=== PATIENT | female | born 1950 | race Caucasian/White ===

== ENCOUNTER 2016-12-28 19:40 | Inpatient (IN) ==
[2016-12-28 21:31] LABS: Basophils # 0.1 K/mcL (0.0-0.2); Basophils % 0.3 %; Eosinophils # 0.1 K/mcL (0.0-0.6); Eosinophils % 0.3 %; Hematocrit 42.9 % (35.3-44.9); Hemoglobin 13.9 g/dL (11.5-15.4); Immature Granulocytes % 0.5 % (0-4); Immature Platelets 14.4 % (1.1-6.1); Lymphocytes # 1.2 K/mcL (0.6-4.6); Lymphocytes % 8.4 %; Mean Corpuscular HGB Conc 32.4 g/dL (31.6-35.5); Mean Corpuscular Hemoglobin 29.8 pg (28.0-33.3); Mean Corpuscular Volume 91.9 fL (83.0-100.0); Mean Platelet Volume 12.4 fL (9.4-12.4); Monocytes # 1.4 K/mcL (0.0-1.3); Monocytes % 9.3 %; Neutrophils # 11.9 K/mcL (1.6-8.9); Platelet Count 188 K/mcL (140-400); Red Blood Count 4.67 M/mcL (3.82-4.97); Red Cell Distribution Width 12.9 % (11.5-14.5); Segmented Neutrophils % 81.2 %
--- NOTE | 2016-12-28 21:38 | Emergency Department Note ---
Disposition Clinical Impression: Elevated LFTs Abdominal pain Qualifiers: Abdominal location: epigastric Qualified Code(s): R10.13 - Epigastric pain Pancreatitis, acute Qualifiers: Pancreatitis type: unspecified pancreatitis type Acute pancreatitis complication: unspecified Qualified Code(s): K85.90 - Acute pancreatitis without necrosis or infection, unspecified Bimalleolar fracture of left ankle Qualifiers: Encounter type: initial encounter Fracture type: closed Qualified Code(s): S82.842A - Displaced bimalleolar fracture of left lower leg, initial encounter for closed fracture Disposition: Admitted As Inpatient Condition: Fair Time of Disposition: 01:00 Abdominal Pain HPI - General Chief Complaint: ED Syncope Stated Complaint: Upper Abd Pain/ generalized weakness Time Seen by Provider: 12/28/16 21:26 Source: patient, EMS Mode of arrival: ambulatory Limitations: no limitations Nursing Notes Reviewed: Yes Vital Signs Reviewed: Yes - History of Present Illness HPI Narrative: Patient is a 66-year-old female who presents to [facility] ED with a chief complaint of abdominal pain. States her symptoms started 2 days ago in the epigastric region which radiates to the right upper quadrant. States she did not think much of it the last 2 days but then today she did feel some nausea with vomiting. States she was laying in bed and then felt like she was coming to Effexor she herself down onto the floor and then crawled over to the bathroom. States she did then crawl over to the phone to call her sisters. They had just been over visiting with her 3 hours prior to that. Denies any fevers or chills. No problems with chest pain, difficulty breathing. Pt Subjective Complaint: abdominal pain Onset (ago): day(s) Consistency: constant Location: epigastric Pain Severity: moderate Pain Scale: 5 Quality: aching Radiation: RUQ Migration to: no migration Improves with: nothing, vomiting Worsens with: eating Associated symptoms: Reports: nausea, vomiting. Denies: diarrhea, fever, chills , constipation Treatments prior to arrival: none - Related Data Allergies Allergy/AdvReac Type Severity Reaction Status Date / Time No Known Allergies Allergy Verified 12/28/16 19:52 All systems ED: reviewed and negative except as stated. Abdominal Pain PMH - Past Medical History Medical history: Reports: no medical history Female Surgical History: Reports: Psychiatric history: Reports: depression - Social History Smoking status: Never smoker Alcohol use: Reports: none Drug use: Reports: none Physical Exam - General Limitations: no limitations General appearance: alert, in no apparent distress - Head Head exam: atraumatic, normocephalic, normal inspection - Eye Eye exam: Present: normal appearance, PERRL, EOMI - ENT ENT exam: normal exam, normal oropharynx, mucous membranes moist - Neck Neck exam: Present: normal inspection, full ROM, trachea midline - Chest Chest inspection: Present: normal inspection, symmetric chest wall rise - Respiratory Respiratory exam: Present: normal lung sounds bilaterally - Cardiovascular Cardiovascular exam: Present: regular rate, normal rhythm, normal heart sounds - Abdominal Exam Abdominal exam: Present: soft, tenderness, normal bowel sounds. Absent: distention, guarding, rebound, rigidity Abdominal tenderness: Present: RUQ, epigastrium - Extremities Exam Extremities exam: Present: normal inspection, full ROM. Absent: tenderness, pedal edema - Back Exam Back exam: Present: normal inspection, full ROM. Absent: tenderness - Neurological Exam Neurological exam: Present: alert, oriented X3 - Psychiatric Psychiatric exam: Present: normal affect, normal mood - Skin Skin exam: Present: warm, dry, intact, normal color Course Course Narrative: Patient seen and examined. Epigastric abdominal pain with nausea and vomiting. Abdominal labs ordered in triage. Also EKG and troponin. Her labs show elevated liver function tests as well as lipase and amylase. We will order a CT abdomen and pelvis with IV contrast. IV fluids, pain and nausea medication orders. Patient also had multiple x-rays of the extremities ordered in triage. - Reevaluation(s) Reevaluation #1: X-ray show medial and lateral malleoli fractures in the left ankle. Patient cannot recall a specific event that happened today though she did say she kicked the wall on accident. I spoke with orthopedics Dr. Dhaliwal who will see the patient in consult and would like a left leg short posterior splint. CT abdomen and pelvis shows a distended gallbladder with stones though no obvious sign of acute cholecystitis. With her pancreatitis, suspect gallbladder pancreatitis. I spoke with surgery Dr. Hernandez who will consult on the patient. I also spoke with the hospitalist Dr. Judge who has accepted patient for admission. Time: 00:56 Vital Signs Temperature 97.8 F 12/28/16 19:46 Pulse Rate 78 12/28/16 19:46 Respiratory Rate 20 03/29/17 19:46 Blood Pressure 103/64 12/28/16 19:46 O2 Sat by Pulse Oximetry 98 12/28/16 19:46 Temperature 97.8 F 12/28/16 19:46 Pulse Rate 83 12/28/16 23:31 Respiratory Rate 18 12/29/16 00:33 Blood Pressure 117/70 12/29/16 00:33 O2 Sat by Pulse Oximetry 96 12/28/16 23:31 Oxygen Delivery Oxygen Delivery Room Air Abdominal Pain - Medical Records Medical records reviewed: Yes I reviewed the patient's medical records. - Lab Data Lab results reviewed: Yes I reviewed the patient's lab results. Result diagrams: 12/28/16 21:08 12/28/16 21:08 Lab Results 12/28/16 12/28/16 12/28/16 Range/Units 20:00 21:08 21:08 WBC 14.7 H (4.3-11.1) K/mcL RBC 4.67 (3.82-4.97) M/mcL Hgb 13.9 (11.5-15.4) g/dL Hct 42.9 (35.3-44.9) % MCV 91.9 (83.0-100.0) fL MCH 29.8 (28.0-33.3) pg MCHC 32.4 (31.6-35.5) g/dL RDW 12.9 (11.5-14.5) % Plt Count 188 (140-400) K/mcL MPV 12.4 (9.4-12.4) fL Immature Gran % 0.5 (0-4) % Seg Neutrophils % 81.2 % Lymphocytes % 8.4 % Monocytes % 9.3 % Eosinophils % 0.3 % Basophils % 0.3 % Neutrophils # 11.9 H (1.6-8.9) K/mcL Lymphocytes # 1.2 (0.6-4.6) K/mcL Monocytes # 1.4 H (0.0-1.3) K/mcL Eosinophils # 0.1 (0.0-0.6) K/mcL Basophils # 0.1 (0.0-0.2) K/mcL Immature Plt Fraction 14.4 H (1.1-6.1) % PT 11.7 (9.4-12.1) Seconds INR 1.1 APTT 24.7 L (26.0-36.0) Seconds Sodium (136-145) mEq/L Potassium (3.5-4.5) mEq/L Chloride (98-109) mEq/L Carbon Dioxide (19-29) mEq/L BUN (7-20) mg/dL Creatinine (0.57-1.11) mg/dL Est GFR ( Amer) (> 60) Est GFR (Non-Af Amer) (> 60) BUN/Creatinine Ratio (6-26) Glucose (70-99) mg/dL POC Glucose 136 H (58-89) Calculated Osmolality (280-300) Calcium (8.6-10.8) mg/dL Total Bilirubin (0.2-1.2) mg/dL Direct Bilirubin (0.0-0.5) mg/dL Indirect Bilirubin (0.0-1.2) mg/dL AST (5-34) Units/L ALT (0-55) Units/L Alkaline Phosphatase (38-126) Units/L Troponin I (0-0.03) ng/mL Serum Total Protein (6.0-8.3) g/dL Albumin (3.5-5.0) g/dL Globulin (2.4-3.5) g/dL Albumin/Globulin Ratio (1.1-2.2) Amylase (25-125) Units/L Lipase (8-78) Units/L Urine Color (Yellow) Urine Clarity (Clear) Urine pH (5.0-8.0) pH Units Ur Specific Basom (1.010-1.025) Urine Protein (Neg-Trace) mg/dL Urine Glucose (UA) (Normal) mg/dL Urine Ketones (Negative) mg/dL Urine Blood (Negative) Urine Nitrite (Negative) Urine Bilirubin (Negative) Urine Urobilinogen (Normal) mg/dL Ur Leukocyte Esterase (Negative) Urine Microscopic RBC (0-3) per hpf Urine Microscopic WBC (0-3) per hpf Ur Squamous Epith Cells (None-Few) per lpf Urine Bacteria (None-Few) per hpf Hyaline Casts (None-Few) per lpf Ur Culture Indicated? (NO) 12/28/16 12/28/16 12/28/16 Range/Units 21:08 21:08 23:12 WBC (4.3-11.1) K/mcL RBC (3.82-4.97) M/mcL Hgb (11.5-15.4) g/dL Hct (35.3-44.9) % MCV (83.0-100.0) fL MCH (28.0-33.3) pg MCHC (31.6-35.5) g/dL RDW (11.5-14.5) % Plt Count (140-400) K/mcL MPV (9.4-12.4) fL Immature Gran % (0-4) % Seg Neutrophils % % Lymphocytes % % Monocytes % % Eosinophils % % Basophils % % Neutrophils # (1.6-8.9) K/mcL Lymphocytes # (0.6-4.6) K/mcL Monocytes # (0.0-1.3) K/mcL Eosinophils # (0.0-0.6) K/mcL Basophils # (0.0-0.2) K/mcL Immature Plt Fraction (1.1-6.1) % PT (9.4-12.1) Seconds INR APTT (26.0-36.0) Seconds Sodium 141 (136-145) mEq/L Potassium 3.3 L (3.5-4.5) mEq/L Chloride 106 (98-109) mEq/L Carbon Dioxide 21 (19-29) mEq/L BUN 20 (7-20) mg/dL Creatinine 0.95 (0.57-1.11) mg/dL Est GFR ( Amer) > 60 (> 60) Est GFR (Non-Af Amer) 59 L (> 60) BUN/Creatinine Ratio 21 (6-26) Glucose 167 H (70-99) mg/dL POC Glucose (58-89) Calculated Osmolality 298 (280-300) Calcium 9.3 (8.6-10.8) mg/dL Total Bilirubin 5.9 H (0.2-1.2) mg/dL Direct Bilirubin 4.3 H (0.0-0.5) mg/dL Indirect Bilirubin 1.6 H (0.0-1.2) mg/dL AST 743 H (5-34) Units/L ALT 733 H (0-55) Units/L Alkaline Phosphatase 117 (38-126) Units/L Troponin I 0.00 (0-0.03) ng/mL Serum Total Protein 7.2 (6.0-8.3) g/dL Albumin 4.1 (3.5-5.0) g/dL Globulin 3.1 (2.4-3.5) g/dL Albumin/Globulin Ratio 1.3 (1.1-2.2) Amylase 5492 H (25-125) Units/L Lipase > 03854 H (8-78) Units/L Urine Color Dark Yellow (Yellow) Urine Clarity Cloudy A (Clear) Urine pH 6.0 (5.0-8.0) pH Units Ur Specific Basom > 1.030 H (1.010-1.025) Urine Protein 30 H (Neg-Trace) mg/dL Urine Glucose (UA) Normal (Normal) mg/dL Urine Ketones Negative (Negative) mg/dL Urine Blood Negative (Negative) Urine Nitrite Negative (Negative) Urine Bilirubin Moderate H (Negative) Urine Urobilinogen Normal (Normal) mg/dL Ur Leukocyte Esterase Trace H (Negative) Urine Microscopic RBC 0-3 (0-3) per hpf Urine Microscopic WBC 3-5 H (0-3) per hpf Ur Squamous Epith Cells Many H (None-Few) per lpf Urine Bacteria None Seen (None-Few) per hpf Hyaline Casts None Seen (None-Few) per lpf Ur Culture Indicated? YES A (NO) - Radiology Data Radiology results reviewed: Yes I reviewed the patient's radiology results. Chest X-Ray 12/28/16 19:58 IMPRESSION: 1. No acute cardiopulmonary disease. D/ / Perez Garcia MD / Perez Garcia MD Interpreting Provider: Perez Garcia MD Ankle X-Ray 12/28/16 20:04 IMPRESSION: 1. Lateral soft swelling at the left ankle with an acute nondisplaced avulsion fracture of the lateral malleolus. 2. Cortical step-off involving the anterior process of the calcaneus, consistent with an age-indeterminate fracture. D/ / Teofilo Recio MD / Teofilo Recio MD Interpreting Provider: Teofilo Recio MD Foot X-Ray 12/28/16 20:05 IMPRESSION: 1. Acute cortical fractures of the medial and lateral malleoli. 2. No acute osseous abnormality of the left foot. D/ / Abhishek Dawson MD / Abhishek Dawson MD Interpreting Provider: Abhishek Dawson MD Knee X-Ray 12/28/16 20:05 IMPRESSION: No acute osseous abnormality of the left knee. D/ / Abhishek Dawson MD / Abhishek Dawson MD Interpreting Provider: Abhishek Dawson MD Abdomen/Pelvis CT 12/28/16 21:53 IMPRESSION: 1. Multiple gallstones. Distended gallbladder without convincing CT evidence for cholecystitis. D/ / 12/28/2016 23:22:11 Perez Garcia MD / Chelo Don Interpreting Provider: Perez Garcia MD Head CT 12/28/16 21:53 IMPRESSION: No acute intracranial abnormality. D/ / Perez Garcia MD / Perez Garcia MD Interpreting Provider: Perez Garcia MD - EKG Data EKG attestation: Yes I reviewed and interpreted this EKG. EKG results narrative: EKG done at 1951 shows normal sinus rhythm with a rate of [address] elevation or depression. Normal axis. Unchanged from prior EKG done 08/15/2012 Attestation Statement - Attestation Attestation: I, Tucker Lilly MD, personally performed a history and physical exam of the patient and discussed their management with the resident. I reviewed the resident's note and agree with the documented findings, medical decision making , and plan of care. 66-year-old female presents to the emergency department with a complaint of epigastric and upper abdominal pain for the past couple of days. There has been some nausea but no vomiting until she arrived here in the emergency department and she did have an episode of vomiting here. The pain does not radiate to the back. No fever. No diarrhea. No GI bleed symptoms. No urinary symptoms. Patient reports that tonight she had an episode of near- syncope and slid off the bed onto the floor and was in the floor rolling around from the pain and thinks she hit her left ankle against the wall. On examination patient is a well-developed well-nourished elderly female in no acute distress. She is alert and oriented 3. There is no cyanosis or diaphoresis. Breath sounds are clear and equal bilaterally. Heart regular rate and rhythm. Abdomen is soft with normal bowel sounds. There is moderate epigastric tenderness. No tympany or distention. No guarding or rebound tenderness. There is tenderness and swelling over the lateral malleolus of the left ankle with some mild ecchymosis. Labs reviewed and revealed elevated liver enzymes and lipase. X-ray did show a fracture of the lateral malleolus and also the calcaneus. Dr. Gray discussed the case with orthopedics and surgery. The patient is being admitted to the hospitalist. Admission and accepted by Dr. Judge.
[2016-12-28 21:40] LABS: INR 1.1; Prothrombin Time 11.7 Seconds (9.4-12.1)
[2016-12-28 21:43] LABS: Activated Partial Thrombo Time 24.7 Seconds (26.0-36.0)
[2016-12-28 21:48] LABS: Alanine Aminotransferase 733 Units/L (0-55); Albumin 4.1 g/dL (3.5-5.0); Albumin/Globulin Ratio 1.3 (1.1-2.2); Alkaline Phosphatase 117 Units/L (38-126); Amylase 5492 Units/L (25-125); Aspartate Amino Transferase 743 Units/L (5-34); BUN/Creatinine Ratio 21 (6-26); Bilirubin,Direct 4.3 mg/dL (0.0-0.5); Bilirubin,Indirect 1.6 mg/dL (0.0-1.2); Bilirubin,Total 5.9 mg/dL (0.2-1.2); Blood Urea Nitrogen 20 mg/dL (7-20); Calcium 9.3 mg/dL (8.6-10.8); Carbon Dioxide 21 mEq/L (19-29); Chloride 106 mEq/L (98-109); Globulin 3.1 g/dL (2.4-3.5); Glucose 167 mg/dL (70-99); Osmolality,Calculated 298 (280-300); Potassium 3.3 mEq/L (3.5-4.5); Sodium 141 mEq/L (136-145); Total Protein 7.2 g/dL (6.0-8.3); eGFR For African Americans > 60 (> 60); eGFR For Non-African Americans 59 (> 60)
[2016-12-28] MEDS ORDERED: Ondansetron 4 MG/2 ML VIAL IVP ONE (22:01)
[2016-12-28] MEDS ORDERED: *HR* HYDROmorphone (PF) 1 MG/ML SYRINGE IVP ONE (22:01)
[2016-12-28] MEDS ORDERED: 0.9 % Sodium Chloride 1,000 ML IVC ONE (22:01)
[2016-12-28 22:48] LABS: Lipase > 12000 Units/L (8-78)
[2016-12-28 23:21] LABS: Bilirubin,Urine Moderate (Negative); Blood,Urine Negative (Negative); Clarity,Urine Cloudy (Clear); Color,Urine Dark Yellow (Yellow); Glucose,Urine (UA) Normal (Normal); Ketones,Urine Negative (Negative); Leukocyte Esterase,Urine Trace (Negative); Nitrite,Urine Negative (Negative); Protein,Urine 30 mg/dL (Neg-Trace); Specific Gravity,Urine > 1.030 (1.010-1.025); Urobilinogen,Urine Normal (Normal)
[2016-12-28 23:22] LABS: Bacteria,Urine None Seen per hpf (None-Few); Hyaline Casts,Urine None Seen per lpf (None-Few); RBC,Urine 0-3 per hpf (0-3); Squamous Epithelial Cell,Urine Many per lpf (None-Few)
--- NOTE | 2016-12-29 00:04 | Internal Med History&Physical ---
Date of Encounter: 12/29/16 Time of Encounter: 01:00 Assessment and Plan (1) Acute abdominal pain syndrome Current visit: Yes Status: Acute . (2) Fall at home Current visit: Yes Status: Acute . Qualifiers: Encounter type: initial encounter Qualified Code(s): W19.XXXA - Unspecified fall, initial encounter; Y92.099 - Unspecified place in other non- institutional residence as the place of occurrence of the external cause (3) Postural dizziness with presyncope Current visit: Yes Status: Acute . Internal Medicine - H&P: HPI Chief complaint: Abdominal pain. Weakness. Admitted From: Emergency Dept Plans for Post Hospital Care: Home History of present illness: Ms. Vora is a 66 year old female admitted to [facility] with complaints of generalized weakness and upper abdominal pain. Patient presents via EMS with assist from home after a syncopal event. He presents with a chief complaint of abdominal pain. This began approximately 2 or more days prior to this presentation primarily in the epigastric region with radiation to the right upper quadrant. It was not limiting however. The day prior to admission she began to experience increasing nausea and some vomiting. Pain seemed to escalate. The night before presentation she was laying in bed and began to feel lightheaded and diaphoretic and nauseated. She felt as if she was about to pass out. She attempted to rise and then found herself on the floor crawling to the bathroom. His disorientation along with her abdominal pain escalated and she began to live from pain on the floor and believes she may have inferior to the left ankle struck it against a wall injuring it. It was an apposition that she called family to assist her motivating the arrival of EMS services. In the ED she denied any acute chest pain. Denied any awareness of any fevers chills or sweats prior to tonight's events. Denied any difficulty breathing. Denies any diarrhea constipation dysuria. Denied any episodes of bleeding. She describes the pain is predominantly epigastric into the right upper quadrant through to the back at a 5-6/10 severity. Nothing seemed to improve symptoms were not present. Slight relief. Following emesis. Worsened with eating. Vital signs were stable. Patient was afebrile at 97.8 degrees Fahrenheit. CBC showed a white blood cell count of 14.7 with increase in neutrophils monocytes and immature platelet fractions. PT 11.7 INR 1.1. Metabolic panel normal except for potassium of 3.3 glucose 167. Total bilirubin 5.9 with direct of 4.3 and direct 1.6. AST 743 ALT 733. Troponin 0.00. Amylase 5492. Lipase greater than 12,000. Urinalysis showed large protein and moderate bilirubin trace leukocyte esterase. PRBC. 5 WBC. Many epithelial cells. Chest x-ray showed no acute active cardiopulmonary process. Ankle x-ray demonstrated lateral soft swelling of the left ankle with acute nondisplaced avulsion fracture of the lateral malleolus. Cortical step-off involving the anterior process of the calcaneus, consistent with age indeterminate fracture. Foot x-ray demonstrated acute fractures of the medial and lateral malleoli. No other acute osseous abnormality of the left foot pain. Knee x-ray demonstrated no acute osseous abnormality of the left knee. CT abdomen and pelvis demonstrated multiple gallstones. Distended gallbladder without CT evidence for cholecystitis. CT head scan showed no acute intracranial abnormality. EKG demonstrated normal sinus rhythm without acute ischemic changes. Appendix surgery and general surgery were consulted by the emergency room attending staff and agreed to follow and manage the patient in the inpatient setting. Workup and treatment will proceed comprehensively. The patient was visited and interviewed and examined. Cumulative laboratory and radiographic data base will be considered and discussed. Pertinent ancillary medical records including ECW and PCI documentation when available was reviewed and considered. Given the patient's presenting concerns, past medical history, clinical findings and symptoms, she is admitted at this time will undergo further evaluation and disposition. Orders were written as per Computerized physician sales order processor system.......................................................................... .................... Consultative opinion will be sought as clinical circumstances justify. Pain management needs will be addressed. Laboratory/ radiographic data base will be updated as appropriate. Studies include: Cultures blood urine, pt/inr, aptt, UA, UDS, viral hepatitis profile, cardiac injury panel, BNP, metabolic and hematologic panel, magnesium, phosphorus, ionized calcium, thyroid panel, lipid profile, A1c, C-peptide, CRP, sedimentation rate, respiratory infection profile, respiratory virus panel, amylase, lipase, blood gas, lactic acid, serologies, etc. Precautions: Aspiration, fall, delirium protocol/surveillance initiated. Telemetry with continuous hemodynamic monitoring and pulse oximetry initiated. Empiric antibiotic coverage: Intravenous Unasyn pending culture data. Special studies: CT chest, CT head, CT abd/pel, left knee/ankle/foot x-rays, chest x-ray, telemetry, EKG. Pulmonary toilet: Incentive spirometry. PRN: aerosol bronchodilator, mucolytic, antitussive, supplemental oxygen. Corticosteroid therapy PRN. CPAP/BiPAP supplemental oxygen PRN. Aerosol Mucomyst therapy PRN. Fluid and electrolyte repletion efforts will proceed. Careful attention to fluid balance and renal recovery will be emphasized. Avoidance of nephrotoxic exposure and adverse drug drug interaction in the setting of impaired renal function will be monitored closely. Acute coronary syndrome protocol/surveillance initiated. Bowel rest imposed. NPO/ice chips et al. Antiemetic, prokinetic, probiotic therapy. Strict input and output and daily weights. Progressive rehydration therapy. DVT and PUD prophylaxis initiated: PPI therapy, intermittent pneumatic cuffs. Subcutaneous heparin/lovenox. Early ambulation will be encouraged. Immunization updates recommended. Influenza and pneumococcal vaccinations as part of ongoing preventative healthcare recommendations strongly recommended. Smoke cessation counseling briefly addressed. Patient is a nonsmoker. Advanced care directive discussion briefly addressed. Patient does not declare any healthcare restrictions at this time. Cardiovascular risk appraisal and cardiovascular risk reduction efforts will be emphasized. Physical /occupational therapy may be counseled to evaluate patient's functional capacity and progress mobility if her circumstances justify. Nutrition/dietary education counseling may be considered as circumstances justify. Outpatient medication schedules will be reviewed, confirmed and facilitated as appropriate. Reconciliation of home treatments including adjustments, substitutions and reintroduction into the treatment regimen will address necessary maintenance therapies for chronic pre-existing medical conditions. Plan of care has been reviewed and discussed in detail with the patient. Questions addressed. Hospital course dictated by clinical findings, treatment response and potential consultative interventions. Patient is a risk for further acute clinical decline due to her age, chief complaints and comorbid conditions. Condition is serious. Prognosis is guarded. CODE STATUS is full. Past Med Surg Social Fam HX - Past Medical History Source: old records reviewed Medical history: non-contributory, other Psychiatric history: anxiety, depression, other - Past Surgical History Surgical History: , other - Social History Smoking Status: Never smoker Alcohol use: none Drug use: none Occupational status: retired Current living situation: Home, With Family Activity Level: Independent ambulation, Mostly sedentary Recent Out of Country Travel Within the Last 8 Weeks: No Exposure or Possible Exposure to Illness During Travel: No - Family History Mother History Unknown: Yes Adopted: [place]: Mackenzie Wagner Age: 88 Family Member Ethnicity: Non- Living Status: Still Living Father History Unknown: Yes Adopted: [place]: Cali Wagner Age: 74 Living Status: Age at : 74 Cause of : pneumonia Hx Family Cardiac Disorders: No Hx Family Respiratory Disorders: No Hx Family Cancer: Yes Hx Family GI Disorders: No Hx Family Genitourinary Disorders: No Hx Family Endocrine Disorder: No Hx Family Musculoskeletal Disorders: No Hx Family Neuromuscular Disorders: No Hx Family Neurologic Disorders: No Hx Family HEENT Disorders: No Hx Family Autoimmune Disorders: No Hx Family Reproductive Disorders: No Hx Family Psychosocial Disorders: No Hx Family Medical Disorders: No Internal Medicine - H&P: Meds Allergies No Known Allergies Allergy (Verified 12/28/16 19:52) All Systems PM: A 10-system review of systems was performed and is negative for pertinent findings except as documented above in the HPI. Patient Problems (Last Updated 12/29/16 @ 00:04 by Junior Judge MD) Acute abdominal pain syndrome (Acute Medical) R10.0 Fall at home (Acute Medical) W19.XXXA, Y92.099 - Constitutional Constitutional: as per HPI, fatigue, falls, malaise, weakness, other, no chills , no fever(s), no night sweats - EENT Eyes: as per HPI, no change in vision, no discharge, no pain, no photophobia Ears: as per HPI, no ear discharge, no ear pain, no tinnitus Nose, mouth and throat: as per HPI, no dysphagia, no nasal discharge, no neck pain, no sore throat - Cardiovascular Cardiovascular ROS IM: as per HPI, lightheadedness, syncope, other, no chest pain, no diaphoresis, no dyspnea, no palpitations - Respiratory Respiratory: as per HPI, no cough, no dyspnea, no wheezing, no excessive phlegm production - Gastrointestinal Gastrointestinal: as per HPI, abdominal pain, constipation, other, no diarrhea, no hematemesis, no hematochezia, no melena, no nausea, no vomiting - Genitourinary Genitourinary: as per HPI, no change in urinary stream, no dysuria, no flank pain, no hematuria - Musculoskeletal Musculoskeletal ROS IM: as per HPI, no numbness, no tingling - Integumentary Integumentary IM: as per HPI, no rash, no unusual bruising - Neurological Neurological ROS: as per HPI, weakness, other, no confusion, no convulsions, no focal weakness, no numbness, no tingling, no tremor(s) - Psychiatric Psychiatric: as per HPI - Endocrine Endocrine IM: as per HPI - Hematologic/Lymphatic Hematologic/Lymphatic: as per HPI, no easy bruising - Allergic/Immunologic Allergic/Immunologic: as per HPI - Constitutional Vitals: Temp Pulse Resp BP Pulse Ox 97.8 F 83 18 124/71 96 12/28/16 19:46 12/28/16 23:31 12/28/16 23:31 12/28/16 23:31 12/28/16 23:31 Vital Signs Temp Pulse Resp BP Pulse Ox 12/28/16 23:31 83 18 124/71 96 12/28/16 22:31 96 18 108/64 97 12/28/16 19:46 97.8 F 78 20 103/64 98 Intake and Output 12/28/16 12/28/16 12/29/16 15:59 23:59 07:59 Intake Total 1000 / 1000 Balance 1000 / 1000 Intake: IV Fluids 1000 / 1000 0.9 % Sodium Chloride 1, 1000 / 1000 000 ML @ 3750 mls/hr IVC .Q16M ONE Rx#:[id number] Other: Weight 74.843 kg Allergies Allergy/AdvReac Type Severity Reaction Status Date / Time No Known Allergies Allergy Verified 12/28/16 19:52 General appearance: Present: mild distress, A&O X 3, morbidly obese, answers questions appropriately - Head Head exam: Present: atraumatic, normocephalic - Eye Eye exam: Present: EOMI, PERRL, scleral icterus, conjuntiva pink Pupils: Present: normal accommodation, PERRL - ENT ENT exam: Present: mucous membranes moist, normal oropharynx - Neck Neck exam general surgery: Present: full ROM, supple, trachea midline. Absent: lymphadenopathy - Respiratory Respiratory exam: Present: decreased breath sounds. Absent: accessory muscle use, CTAB, rales, rhonchi, stridor, wheezes - Cardiovascular Cardiovascular exam: Present: distant heart sounds, RRR, +S1, +S2. Absent: diastolic murmur, gallop, rubs, systolic murmur - GI/Abdominal GI/Abdominal exam: Present: distended, normal bowel sounds, soft, tenderness, no peritoneal signs. Absent: mass - Extremities Exam Extremities exam: Present: warm, radial pulses palpable and symetrical. Absent : calf tenderness, cyanotic, pedal edema - Expanded Lower Extremities Exam Ankle exam: Present: deformity, swelling, tenderness. Absent: full ROM Neuro vascular tendon exam: Present: motor deficit, no vascular compromise, significant pain with passive ROM of distal joint. Absent: pulse deficit, sensory deficit Gait: Present: not tested/not observed - Neurological Exam Neurological exam: Present: alert, altered, CN II-XII intact, oriented X3, no focal deficits. Absent: pronater drift, facial droop, speech deficit - Psychiatric Psychiatric exam: Present: normal affect, normal mood - Skin Skin exam: Present: dry, intact, warm Internal Med - H&P Results - Labs CBC & Chem 7: 12/28/16 21:08 12/28/16 21:08 Labs: Short CBC 12/28/16 Range/Units 21:08 WBC 14.7 H (4.3-11.1) K/mcL Hgb 13.9 (11.5-15.4) g/dL Hct 42.9 (35.3-44.9) % Plt Count 188 (140-400) K/mcL Neutrophils # 11.9 H (1.6-8.9) K/mcL BMP 12/28/16 21:08 Sodium 141 Potassium 3.3 L Chloride 106 Carbon Dioxide 21 BUN 20 Creatinine 0.95 Glucose 167 H Calcium 9.3 Cardiac Enzymes 12/28/16 Range/Units 21:08 Troponin I 0.00 (0-0.03) ng/mL Liver Function 12/28/16 Range/Units 21:08 Total Bilirubin 5.9 H (0.2-1.2) mg/dL Direct Bilirubin 4.3 H (0.0-0.5) mg/dL AST 743 H (5-34) Units/L ALT 733 H (0-55) Units/L Alkaline Phosphatase 117 (38-126) Units/L Albumin 4.1 (3.5-5.0) g/dL Urine 12/28/16 Range/Units 23:12 Urine Color Dark Yellow (Yellow) Urine Clarity Cloudy A (Clear) Urine pH 6.0 (5.0-8.0) pH Units Ur Specific Stitzer > 1.030 H (1.010-1.025) Urine Protein 30 H (Neg-Trace) mg/dL Urine Glucose (UA) Normal (Normal) mg/dL Abnormal lab results WBC 14.7 K/mcL (4.3-11.1) H 12/28/16 21:08 Neutrophils # 11.9 K/mcL (1.6-8.9) H 12/28/16 21:08 Monocytes # 1.4 K/mcL (0.0-1.3) H 12/28/16 21:08 Immature Plt Fraction 14.4 % (1.1-6.1) H 12/28/16 21:08 APTT 24.7 Seconds (26.0-36.0) L 12/28/16 21:08 Potassium 3.3 mEq/L (3.5-4.5) L 12/28/16 21:08 Est GFR (Non-Af Amer) 59 (> 60) L 12/28/16 21:08 Glucose 167 mg/dL (70-99) H 12/28/16 21:08 POC Glucose 136 (58-89) H 12/28/16 20:00 Total Bilirubin 5.9 mg/dL (0.2-1.2) H 12/28/16 21:08 Direct Bilirubin 4.3 mg/dL (0.0-0.5) H 12/28/16 21:08 Indirect Bilirubin 1.6 mg/dL (0.0-1.2) H 12/28/16 21:08 AST 743 Units/L (5-34) H 12/28/16 21:08 ALT 733 Units/L (0-55) H 12/28/16 21:08 Amylase 5492 Units/L (25-125) H 12/28/16 21:08 Lipase > 56651 Units/L (8-78) H 12/28/16 21:08 Urine Clarity Cloudy (Clear) A 12/28/16 23:12 Ur Specific Stitzer > 1.030 (1.010-1.025) H 12/28/16 23:12 Urine Protein 30 mg/dL (Neg-Trace) H 12/28/16 23:12 Urine Bilirubin Moderate (Negative) H 12/28/16 23:12 Ur Leukocyte Esterase Trace (Negative) H 12/28/16 23:12 Urine Microscopic WBC 3-5 per hpf (0-3) H 12/28/16 23:12 Ur Squamous Epith Cells Many per lpf (None-Few) H 12/28/16 23:12 Ur Culture Indicated? YES (NO) A 12/28/16 23:12 Laboratory Last Values WBC 14.7 K/mcL (4.3-11.1) H 12/28/16 21:08 RBC 4.67 M/mcL (3.82-4.97) 12/28/16 21:08 Hgb 13.9 g/dL (11.5-15.4) 12/28/16 21:08 Hct 42.9 % (35.3-44.9) 12/28/16 21:08 MCV 91.9 fL (83.0-100.0) 12/28/16 21:08 MCH 29.8 pg (28.0-33.3) 12/28/16 21:08 MCHC 32.4 g/dL (31.6-35.5) 12/28/16 21:08 RDW 12.9 % (11.5-14.5) 12/28/16 21:08 Plt Count 188 K/mcL (140-400) 12/28/16 21:08 MPV 12.4 fL (9.4-12.4) 12/28/16 21:08 Immature Gran % 0.5 % (0-4) 12/28/16 21:08 Seg Neutrophils % 81.2 % 12/28/16 21:08 Lymphocytes % 8.4 % 12/28/16 21:08 Monocytes % 9.3 % 12/28/16 21:08 Eosinophils % 0.3 % 12/28/16 21:08 Basophils % 0.3 % 12/28/16 21:08 Neutrophils # 11.9 K/mcL (1.6-8.9) H 12/28/16 21:08 Lymphocytes # 1.2 K/mcL (0.6-4.6) 12/28/16 21:08 Monocytes # 1.4 K/mcL (0.0-1.3) H 12/28/16 21:08 Eosinophils # 0.1 K/mcL (0.0-0.6) 12/28/16 21:08 Basophils # 0.1 K/mcL (0.0-0.2) 12/28/16 21:08 Immature Plt Fraction 14.4 % (1.1-6.1) H 12/28/16 21:08 PT 11.7 Seconds (9.4-12.1) 12/28/16 21:08 INR 1.1 12/28/16 21:08 APTT 24.7 Seconds (26.0-36.0) L 12/28/16 21:08 Sodium 141 mEq/L (136-145) 12/28/16 21:08 Potassium 3.3 mEq/L (3.5-4.5) L 12/28/16 21:08 Chloride 106 mEq/L (98-109) 12/28/16 21:08 Carbon Dioxide 21 mEq/L (19-29) 12/28/16 21:08 BUN 20 mg/dL (7-20) 12/28/16 21:08 Creatinine 0.95 mg/dL (0.57-1.11) 12/28/16 21:08 Est GFR ( Amer) > 60 (> 60) 12/28/16 21:08 Est GFR (Non-Af Amer) 59 (> 60) L 12/28/16 21:08 BUN/Creatinine Ratio 21 (6-26) 12/28/16 21:08 Glucose 167 mg/dL (70-99) H 12/28/16 21:08 POC Glucose 136 (58-89) H 12/28/16 20:00 Calculated Osmolality 298 (280-300) 12/28/16 21:08 Calcium 9.3 mg/dL (8.6-10.8) 12/28/16 21:08 Total Bilirubin 5.9 mg/dL (0.2-1.2) H 12/28/16 21:08 Direct Bilirubin 4.3 mg/dL (0.0-0.5) H 12/28/16 21:08 Indirect Bilirubin 1.6 mg/dL (0.0-1.2) H 12/28/16 21:08 AST 743 Units/L (5-34) H 12/28/16 21:08 ALT 733 Units/L (0-55) H 12/28/16 21:08 Alkaline Phosphatase 117 Units/L (38-126) 12/28/16 21:08 Troponin I 0.00 ng/mL (0-0.03) 12/28/16 21:08 Serum Total Protein 7.2 g/dL (6.0-8.3) 12/28/16 21:08 Albumin 4.1 g/dL (3.5-5.0) 12/28/16 21:08 Globulin 3.1 g/dL (2.4-3.5) 12/28/16 21:08 Albumin/Globulin Ratio 1.3 (1.1-2.2) 12/28/16 21:08 Amylase 5492 Units/L (25-125) H 12/28/16 21:08 Lipase > 30260 Units/L (8-78) H 12/28/16 21:08 Urine Color Dark Yellow (Yellow) 12/28/16 23:12 Urine Clarity Cloudy (Clear) A 12/28/16 23:12 Urine pH 6.0 pH Units (5.0-8.0) 12/28/16 23:12 Ur Specific Stitzer > 1.030 (1.010-1.025) H 12/28/16 23:12 Urine Protein 30 mg/dL (Neg-Trace) H 12/28/16 23:12 Urine Glucose (UA) Normal mg/dL (Normal) 12/28/16 23:12 Urine Ketones Negative mg/dL (Negative) 12/28/16 23:12 Urine Blood Negative (Negative) 12/28/16 23:12 Urine Nitrite Negative (Negative) 12/28/16 23:12 Urine Bilirubin Moderate (Negative) H 12/28/16 23:12 Urine Urobilinogen Normal mg/dL (Normal) 12/28/16 23:12 Ur Leukocyte Esterase Trace (Negative) H 12/28/16 23:12 Urine Microscopic RBC 0-3 per hpf (0-3) 12/28/16 23:12 Urine Microscopic WBC 3-5 per hpf (0-3) H 12/28/16 23:12 Ur Squamous Epith Cells Many per lpf (None-Few) H 12/28/16 23:12 Urine Bacteria None Seen per hpf (None-Few) 12/28/16 23:12 Hyaline Casts None Seen per lpf (None-Few) 12/28/16 23:12 Ur Culture Indicated? YES (NO) A 12/28/16 23:12 - Impressions ITS Impressions Chest X-Ray 12/28/16 19:58 IMPRESSION: 1. No acute cardiopulmonary disease. D/ / Perez Garcia MD / Perez Garcia MD Interpreting Provider: Perez Garcia MD Ankle X-Ray 12/28/16 20:04 IMPRESSION: 1. Lateral soft swelling at the left ankle with an acute nondisplaced avulsion fracture of the lateral malleolus. 2. Cortical step-off involving the anterior process of the calcaneus, consistent with an age-indeterminate fracture. D/ / Teofilo Recio MD / Teofilo Recio MD Interpreting Provider: Teofilo Recio MD Foot X-Ray 12/28/16 20:05 IMPRESSION: 1. Acute cortical fractures of the medial and lateral malleoli. 2. No acute osseous abnormality of the left foot. D/ / Abhishek Dawson MD / Abhishek Dawson MD Interpreting Provider: Abhishek Dawson MD Knee X-Ray 12/28/16 20:05 IMPRESSION: No acute osseous abnormality of the left knee. D/ / Abhishek Dawson MD / Abhishek Dawson MD Interpreting Provider: Abhishek Dawson MD Abdomen/Pelvis CT 12/28/16 21:53 IMPRESSION: 1. Multiple gallstones. Distended gallbladder without convincing CT evidence for cholecystitis. D/ / 12/28/2016 23:22:11 Perez Garcia MD / Chelo Don Interpreting Provider: Perez Garcia MD Head CT 12/28/16 21:53 IMPRESSION: No acute intracranial abnormality. D/ / Perez Garcia MD / Perez Garcai MD Interpreting Provider: Perez Garcia MD - Attending Attestation Allergies No Known Allergies Allergy (Verified 12/28/16 19:52) I & O 12/26/16 12/27/16 12/28/16 12/29/16 23:59 23:59 23:59 23:59 Intake Total 1000 / 1000 Balance 1000 / 1000 Weight 74.843 kg Intake: IV Fluids 1000 / 1000 0.9 % Sodium Chloride 1, 1000 / 1000 000 ML @ 3750 mls/hr IVC .Q16M ONE Rx#:[id number] Medications Discontinued Medications Hydromorphone HCl (Dilaudid) 0.5 mg IVP ONCE ONE Stop: 12/28/16 22:02 Last Admin: 12/28/16 22:25 Dose: 0.5 mg Re-Assess: [facility] Pain Assessment Document 12/28/16 23:10 [facility] (Rec: 12/28/16 23:34 [facility] [id number]) Patient's Stated Pain Level Pain Intensity 4 Sodium Chloride (0.9 % Sodium Chloride) 1,000 mls @ 3,750 mls/hr IVC .Q16M ONE Stop: 12/28/16 22:16 Last Infusion: 12/28/16 23:34 Dose: 0 mls/hr Ondansetron HCl (Zofran) 4 mg IVP ONCE ONE PRN Reason: Protocol Stop: 12/28/16 22:02 Last Admin: 12/28/16 22:26 Dose: 4 mg Orders 12/28/16 19:57 12 lead ECG assessment [RC] NOW Glucose, blood poc measurement [RC] .ONCE ECG 12 lead ECG [ECG] Stat Mode Of Transportation: Ambulatory Reason For Exam: syncope Exam Performed At:: [facility] 12/28/16 19:58 XR chest 2V [XR] Stat Mode Of Transportation: Ambulatory Reason For Exam: sycope Order Doctor: Tucker Lilly Exam Performed At:: [facility] 12/28/16 20:00 POC Glucometer Test [POC] Routine 12/28/16 20:04 XR ankle complete min 3V LT [XR] Stat Mode Of Transportation: Ambulatory Reason For Exam: injury Order Doctor: Tucker Lilly Exam Performed At:: [facility] 12/28/16 20:05 XR foot 3V LT [XR] Stat Mode Of Transportation: Ambulatory Reason For Exam: injury Order Doctor: Tucker Lilly Exam Performed At:: [facility] XR knee 3V LT [XR] Stat Mode Of Transportation: Ambulatory Reason For Exam: injury Order Doctor: Tucker Lilly Exam Performed At:: [facility] Additional Notes/Special Instructions: may adjust number of films for foot/ ankle/knee as needed 12/28/16 21:08 Activated Partial Thrombo Time [COAG] Stat Comment: Specimen: Send someone from the department to collect Amylase Stat Comment: Specimen: Send someone from the department to collect Basic Metabolic Panel Stat Comment: Specimen: Send someone from the department to collect Complete Blood Count [HEME] Stat Comment: Specimen: Send someone from the department to collect Hepatic Panel Stat Comment: Specimen: Send someone from the department to collect Lipase Stat Comment: Specimen: Send someone from the department to collect Prothrombin Time INR [COAG] Stat Comment: Specimen: Send someone from the department to collect Troponin I Stat Comment: Specimen: Send someone from the department to collect 12/28/16 21:53 CT abd pelvis w iv no oral [CT] Stat Mode Of Transportation: Ambulatory Quantity: 1 Reason For Exam: abd pain Order Doctor: Lakshmi Gray Exam Performed At:: [facility] Allergic to Contrast: No CT head/brain wo con [CT] Stat Mode Of Transportation: Ambulatory Reason For Exam: abd pain Order Doctor: Lakshmi Gray Exam Performed At:: [facility] Allergic to Contrast: No 12/28/16 22:01 Saline lock [RC] .ONCE 0.9 % Sodium Chloride 1,000 ml IVC 3,750 mls/hr HYDROmorphone (PF) [Dilaudid] 0.5 mg IVP ONCE ONE Ondansetron [Zofran] 4 mg IVP ONCE ONE 12/28/16 23:12 Culture,Urine [RM] Stat DIANE Source: UR Specimen Description: Urinalysis Reflex Cult & Micro [URIN] Stat Comment: Specimen: Has been collected Source of specimen:: Clean Catch 12/28/16 23:[address] Stat Comment: Reason for Visit: acute pancreatitis, L ankle fx 12/28/16 23:40 Consult to Surgery [CONS] Routine Consulting Provider: Silas Hernandez Reason for Consult: concern for gallstone pancreatitis Time Notified: 23:41 Call Completed: Yes 12/28/16 23:50 Splint [RC] .NOW Consult to Orthopedic Surgery [CONS] Routine Consulting Provider: Carlos Dhaliwal Reason for Consult: L lateral and medial malleoli fxs Time Notified: 23:51 Call Completed: Yes Vital Signs Temp Pulse Resp BP Pulse Ox 12/28/16 23:31 83 18 124/71 96 12/28/16 22:31 96 18 108/64 97 12/28/16 19:46 97.8 F 78 20 103/64 98 Laboratory Results 12/28/16 12/28/16 12/28/16 Range/Units 20:00 21:08 21:08 WBC 14.7 H (4.3-11.1) K/mcL RBC 4.67 (3.82-4.97) M/mcL Hgb 13.9 (11.5-15.4) g/dL Hct 42.9 (35.3-44.9) % MCV 91.9 (83.0-100.0) fL MCH 29.8 (28.0-33.3) pg MCHC 32.4 (31.6-35.5) g/dL RDW 12.9 (11.5-14.5) % Plt Count 188 (140-400) K/mcL MPV 12.4 (9.4-12.4) fL Immature Gran % 0.5 (0-4) % Seg Neutrophils % 81.2 % Lymphocytes % 8.4 % Monocytes % 9.3 % Eosinophils % 0.3 % Basophils % 0.3 % Neutrophils # 11.9 H (1.6-8.9) K/mcL Lymphocytes # 1.2 (0.6-4.6) K/mcL Monocytes # 1.4 H (0.0-1.3) K/mcL Eosinophils # 0.1 (0.0-0.6) K/mcL Basophils # 0.1 (0.0-0.2) K/mcL Immature Plt Fraction 14.4 H (1.1-6.1) % PT 11.7 (9.4-12.1) Seconds INR 1.1 APTT 24.7 L (26.0-36.0) Seconds Sodium (136-145) mEq/L Potassium (3.5-4.5) mEq/L Chloride (98-109) mEq/L Carbon Dioxide (19-29) mEq/L BUN (7-20) mg/dL Creatinine (0.57-1.11) mg/dL Est GFR ( Amer) (> 60) Est GFR (Non-Af Amer) (> 60) BUN/Creatinine Ratio (6-26) Glucose (70-99) mg/dL POC Glucose 136 H (58-89) Calculated Osmolality (280-300) Calcium (8.6-10.8) mg/dL Total Bilirubin (0.2-1.2) mg/dL Direct Bilirubin (0.0-0.5) mg/dL Indirect Bilirubin (0.0-1.2) mg/dL AST (5-34) Units/L ALT (0-55) Units/L Alkaline Phosphatase (38-126) Units/L Troponin I (0-0.03) ng/mL Serum Total Protein (6.0-8.3) g/dL Albumin (3.5-5.0) g/dL Globulin (2.4-3.5) g/dL Albumin/Globulin Ratio (1.1-2.2) Amylase (25-125) Units/L Lipase (8-78) Units/L Urine Color (Yellow) Urine Clarity (Clear) Urine pH (5.0-8.0) pH Units Ur Specific [place] (1.010-1.025) Urine Protein (Neg-Trace) mg/dL Urine Glucose (UA) (Normal) mg/dL Urine Ketones (Negative) mg/dL Urine Blood (Negative) Urine Nitrite (Negative) Urine Bilirubin (Negative) Urine Urobilinogen (Normal) mg/dL Ur Leukocyte Esterase (Negative) Urine Microscopic RBC (0-3) per hpf Urine Microscopic WBC (0-3) per hpf Ur Squamous Epith Cells (None-Few) per lpf Urine Bacteria (None-Few) per hpf Hyaline Casts (None-Few) per lpf Ur Culture Indicated? (NO) 12/28/16 12/28/16 12/28/16 Range/Units 21:08 21:08 23:12 WBC (4.3-11.1) K/mcL RBC (3.82-4.97) M/mcL Hgb (11.5-15.4) g/dL Hct (35.3-44.9) % MCV (83.0-100.0) fL MCH (28.0-33.3) pg MCHC (31.6-35.5) g/dL RDW (11.5-14.5) % Plt Count (140-400) K/mcL MPV (9.4-12.4) fL Immature Gran % (0-4) % Seg Neutrophils % % Lymphocytes % % Monocytes % % Eosinophils % % Basophils % % Neutrophils # (1.6-8.9) K/mcL Lymphocytes # (0.6-4.6) K/mcL Monocytes # (0.0-1.3) K/mcL Eosinophils # (0.0-0.6) K/mcL Basophils # (0.0-0.2) K/mcL Immature Plt Fraction (1.1-6.1) % PT (9.4-12.1) Seconds INR APTT (26.0-36.0) Seconds Sodium 141 (136-145) mEq/L Potassium 3.3 L (3.5-4.5) mEq/L Chloride 106 (98-109) mEq/L Carbon Dioxide 21 (19-29) mEq/L BUN 20 (7-20) mg/dL Creatinine 0.95 (0.57-1.11) mg/dL Est GFR ( Amer) > 60 (> 60) Est GFR (Non-Af Amer) 59 L (> 60) BUN/Creatinine Ratio 21 (6-26) Glucose 167 H (70-99) mg/dL POC Glucose (58-89) Calculated Osmolality 298 (280-300) Calcium 9.3 (8.6-10.8) mg/dL Total Bilirubin 5.9 H (0.2-1.2) mg/dL Direct Bilirubin 4.3 H (0.0-0.5) mg/dL Indirect Bilirubin 1.6 H (0.0-1.2) mg/dL AST 743 H (5-34) Units/L ALT 733 H (0-55) Units/L Alkaline Phosphatase 117 (38-126) Units/L Troponin I 0.00 (0-0.03) ng/mL Serum Total Protein 7.2 (6.0-8.3) g/dL Albumin 4.1 (3.5-5.0) g/dL Globulin 3.1 (2.4-3.5) g/dL Albumin/Globulin Ratio 1.3 (1.1-2.2) Amylase 5492 H (25-125) Units/L Lipase > 26837 H (8-78) Units/L Urine Color Dark Yellow (Yellow) Urine Clarity Cloudy A (Clear) Urine pH 6.0 (5.0-8.0) pH Units Ur Specific [place] > 1.030 H (1.010-1.025) Urine Protein 30 H (Neg-Trace) mg/dL Urine Glucose (UA) Normal (Normal) mg/dL Urine Ketones Negative (Negative) mg/dL Urine Blood Negative (Negative) Urine Nitrite Negative (Negative) Urine Bilirubin Moderate H (Negative) Urine Urobilinogen Normal (Normal) mg/dL Ur Leukocyte Esterase Trace H (Negative) Urine Microscopic RBC 0-3 (0-3) per hpf Urine Microscopic WBC 3-5 H (0-3) per hpf Ur Squamous Epith Cells Many H (None-Few) per lpf Urine Bacteria None Seen (None-Few) per hpf Hyaline Casts None Seen (None-Few) per lpf Ur Culture Indicated? YES A (NO) Assessments/Treatments 12 lead ECG assessment Start: 12/28/16 19: 57 Freq: NOW Status: Complete Document 12/28/16 19:52 ALS (Rec: 12/28/16 20:18 ALS [id number]) EKG Time EKG Completed 19:52 EKG performed by Nenita MONTOYA shown to and signed by Dr Lilly Cardiac monitoring Start: 12/28/16 19: 41 Freq: Status: Complete Document 12/28/16 22:34 [facility] (Rec: 12/28/16 22:38 [facility] [id number]) Cardiac Monitoring Heart Rate 88 Monitoring Method Telemetry Rhythm Sinus Rhythm Monitor Number 3 ED Abdominal Pain Assessment Start: 12/28/16 19: 41 Freq: Status: Complete Document 12/28/16 22:34 [facility] (Rec: 12/28/16 22:38 [facility] [id number]) Abdominal Pain Symptoms/Complaint Abdominal Pain Context Unknown Improves With Bowel Movement Rest Vomiting Worsens With Eating Movement Associated Symptoms Constipations Vomiting Level Of Consciousness Awake Alert Appropriate Follows Commands Patient Orientation Person Place Time Name Age Date of Day of Month Day of Week Month Year Time of Day Skin Temperature Warm Skin Moisture Dry Skin Turgor Normal Capillary Refill < 3 Seconds Respiratory Effort Spontaneous Non-Labored Respiratory Pattern Regular Abdomen Description Flat Soft Tender Date of Last Bowel Movement 12/28/16 Nausea/Vomiting Presence Nauseated Vomiting Emesis Description Bile Bladder Distention Description None Last Void Date 12/28/16 ED Comment pt reports several days of epigastric pain that radiates to the right. pt has not had BM for several days. states this is unusual for her. pt said she passed a medium amount of stool. did not look at for color or appearance. Saline lock insertion/management Start: 12/28/16 22: 01 Freq: .ONCE Status: Complete Document 12/28/16 22:23 [facility] (Rec: 12/28/16 22:23 [facility] [id number]) IV Insertion/Site Assessment IV Attempt 1 Successful Successful Blood drawn and sent to Lab No Left Antecubital IV Established PROMOTIONS PRODUCER No Date of Insertion 12/28/16 Time of Insertion 22:23 Reason for IV Insertion Provide Access for Emergency IV Catheter Type Peripheral IV Gauge (gauge) 18 Site Observation Patent Dressing Applied Window Dressing Dry/Intact Patient Tolerance Tolerated Well Triage Start: 12/28/16 19: 41 Freq: Status: Active Document 12/28/16 19:46 ALS (Rec: 12/28/16 19:52 ALS [id number]) Triage Chief Complaint triage ED Syncope Patient Stated Complaint abd pain, syncope ARTHUR 2 Onset (ago) hour(s) Description of Symptoms States that about an hour ago she got up to go to the bathroom because it felt as if she was going to vomit and then the next thing she noticed was crawling around on the bathroom floor so she called her daughter and her sister called EMS. C/O upper abd pain and nausea. States that she also injured her L ankle and knee when she passed out. General Appearance alert in no apparent distress Mode of arrival EMS Arrival via EMS [facility] Source patient EMS Limitations no limitations Ebola Risk: Travel/Contact With Anyone No From Affected Area/s Has Patient Experienced Ebola Symptoms No Temperature (97.6 F-99.6 F) 97.8 F Temperature Source Oral Pulse Rate 78 Respiratory Rate 20 Blood Pressure 103/64 O2 Sat by Pulse Oximetry (95-100) 98 Oxygen Delivery Room Air Height 1.68 m Weight 74.843 kg Weight Measurement Method Stated by Patient Pain Scale 5 Pain Scale Used Standard (1-10) Medical history no medical history Female surgical history Psychiatric history depression Smoking Status Never smoker Alcohol Use none Drug Use none Patient resides with/at Alone Do you currently feel hopless, have No thoughts of self harm, or thoughts of harming others History of fall in last 14 days? Yes Influenza vaccine up to date No Pneumonia vaccine up to date No Tetanus UTD yes Vital Signs Assessment Start: 12/28/16 19: 41 Freq: Status: Active Document 12/28/16 22:31 [facility] (Rec: 12/28/16 22:33 [facility] [id number]) ED Vital Signs Pain Reported Pain Reported Pain Scale 7 Pain Scale Used Standard (1-10) Blood Pressure 108/64 Pulse Rate 96 Respiratory Rate 18 Effort Spontaneous Non-Labored Pattern Regular Pulse Oximetry (95-100) 97 Oxygen Delivery Room Air Document 12/28/16 23:31 [facility] (Rec: 12/28/16 23:34 [facility] [id number]) ED Vital Signs Pain Reported Pain Reported Pain Scale 4 Pain Scale Used Standard (1-10) Blood Pressure 124/71 Pulse Rate 83 Respiratory Rate 18 Effort Spontaneous Non-Labored Pattern Regular Pulse Oximetry (95-100) 96 Oxygen Delivery Room Air Discharge Information ED Provider: Tucker Lilly Status: Admitted Observation Patient Time Seen by Provider: 12/28/16 21:26 Condition: Triaged At: Other ED Providers: Silas Hernandez Brian Seth Emergency Discharge Date/Time: Emergency Discharge Disposition: Clinical Impression Emergency Discharge Comment: Admit Intervention Last Done ED Abdominal Pain Assessment 12/28/16 22:34 Query Result Abdominal Pain Symptoms/Comlaint Abdominal Pain Abdominal Pain Context Unknown Abdominal Pain Improves With Bowel Movement Rest Vomiting Abdominal Pain Worsens With Eating Movement Abdominal Pain Associated Symptoms Constipations Vomiting Level Of Consciousness Awake Alert Appropriate Follows Commands Patient Orientation Person Place Time Name Age Date of Day of Month Day of Week Month Year Time of Day Skin Temperature Warm Skin Moisture Dry Skin Turgor Normal Capillary Refill < 3 Seconds Respiratory Effort Spontaneous Non-Labored Respiratory Pattern Regular Abdomen Description Flat Soft Tender Date of Last Bowel Movement 12/28/16 Nausea/Vomiting Presence Nauseated Vomiting Emesis Description Bile Bladder Distention Description None Last Void Date 12/28/16 ED Comment pt reports several days of epigastric pain that radiates to the right. pt has not had BM for several days. states this is unusual for her. pt said she passed a medium amount of stool. did not look at for color or appearance. ED Discharge Assessment ED Syncope Assessment Observation Discharge Date/Time: Observation Discharge Disposition: Observation Discharge Comment: Instructions: Stand-Alone Forms: Prescriptions: Visit Report - Forms: - Referrals: Radiology Results Chest X-Ray 12/28/16 19:58 IMPRESSION: 1. No acute cardiopulmonary disease. D/ / Perez Garcia MD / Perez Garcia MD Interpreting Provider: Perez Garcia MD Ankle X-Ray 12/28/16 20:04 IMPRESSION: 1. Lateral soft swelling at the left ankle with an acute nondisplaced avulsion fracture of the lateral malleolus. 2. Cortical step-off involving the anterior process of the calcaneus, consistent with an age-indeterminate fracture. D/ / Teofilo Recio MD / Teofilo Recio MD Interpreting Provider: Teofilo Recio MD Foot X-Ray 12/28/16 20:05 IMPRESSION: 1. Acute cortical fractures of the medial and lateral malleoli. 2. No acute osseous abnormality of the left foot. D/ / Abhishek Dawson MD / Abhishek Dawson MD Interpreting Provider: Abhishek Dawson MD Knee X-Ray 12/28/16 20:05 IMPRESSION: No acute osseous abnormality of the left knee. D/ / Abhishek Dawson MD / Abhishek Dawson MD Interpreting Provider: Abhishek Dawson MD Abdomen/Pelvis CT 12/28/16 21:53 IMPRESSION: 1. Multiple gallstones. Distended gallbladder without convincing CT evidence for cholecystitis. D/ / 12/28/2016 23:22:11 Perez Garcia MD / Chelo Don Interpreting Provider: Perez Garcia MD Head CT 12/28/16 21:53 IMPRESSION: No acute intracranial abnormality. D/ / Perez Garcia MD / Perez Garcia MD Interpreting Provider: ePrez Garcia MD
[2016-12-29] MEDS ORDERED: 0.9 % Sodium Chloride 1,000 ML IVC ONE (00:19)
[2016-12-29] MEDS ORDERED: Naloxone 0.4 MG/ML INJ IVP PRN (00:28)
[2016-12-29] MEDS ORDERED: *HR* Promethazine 25 MG/ML VIAL IVP PRN (00:28)
[2016-12-29] MEDS ORDERED: Potassium Chloride 40 MEQ, Lidocaine 1% 2 ML in D5% in Water 500 ML IVPB ONE (00:28)
[2016-12-29] MEDS ORDERED: Ampicillin/Sulbactam 1,500 MG in 0.9 % Sodium Chloride Mini Bag 100 ML IVPB STA (00:38)
[2016-12-29] MEDS ORDERED: Pantoprazole 80 MG in 0.9 % Sodium Chloride 50 ML IVPB STA (00:39)
[2016-12-29 01:11] LABS: VBG HCO3 23.7 mEq/L (21-27); VBG PH 7.32 pH Units (7.32-7.42)
[2016-12-29 01:23] LABS: C-Reactive Protein 10 mg/L (Less than 5); Lactate Dehydrogenase 834 Units/L (159-327)
[2016-12-29 01:24] LABS: Amylase 3952 Units/L (25-125); Chol/HDL Ratio 3.1 (0-4.9); Cholesterol 195 mg/dL (< 200); HDL Cholesterol 63 mg/dL (40-59); LDL Cholesterol,Calculated 123 mg/dL (0-99); Phosphorous 3.9 mg/dL (2.3-4.7); Triglycerides 47 mg/dL (< 150)
[2016-12-29 01:32] LABS: Hemoglobin A1C 5.4 %
[2016-12-29 01:34] LABS: Ethanol < 10 mg/dL (0-10)
[2016-12-29 01:48] LABS: Hepatitis A Antibody IgM Nonreactive (Nonreactive); Hepatitis B Core IgM Nonreactive (Nonreactive); Hepatitis B Surface Antigen Nonreactive (Nonreactive); Hepatitis C Virus Antibody Nonreactive (Nonreactive)
[2016-12-29 01:55] LABS: Thyroid Stimulating Hormone 0.624 mcIU/mL (0.350-4.840)
[2016-12-29] MEDS: *HR* HYDROmorphone (PF) 1 MG/ML SYRINGE IVP PRN ×4 (02:19→14:28)
[2016-12-29 02:23] LABS: Lipase > 12000 Units/L (8-78)
[2016-12-29] MEDS: Ringers Solution, Lactated 1,000 ML IVC SCH ×2 (03:05→12:07)
[2016-12-29 03:30] LABS: Bilirubin,Urine Small (Negative); Blood,Urine Negative (Negative); Clarity,Urine Clear (Clear); Color,Urine Yellow (Yellow); Glucose,Urine (UA) Normal (Normal); Ketones,Urine Negative (Negative); Leukocyte Esterase,Urine Negative (Negative); Nitrite,Urine Negative (Negative); Protein,Urine Negative (Neg-Trace); Specific Gravity,Urine > 1.030 (1.010-1.025); Urobilinogen,Urine Normal (Normal)
[2016-12-29 03:36] LABS: Amphetamine Screen,Urine Negative ng/mL (Cutoff=1000); Barbiturate Screen,Urine Negative ng/mL (Cutoff=200); Benzodiazepines Screen,Urine Negative ng/mL (Cutoff=200); Cannabinoid Screen,Urine Negative ng/mL (Cutoff = 50); Cocaine Screen,Urine Negative ng/mL (Cutoff= 300); Opiate Screen,Urine Negative ng/mL (Cutoff=300); Phencyclidine Screen,Urine Negative ng/mL (Cutoff=25)
[2016-12-29] MEDS: Pantoprazole 40 MG VIAL IVP SCH ×2 (04:49→18:30)
[2016-12-29] MEDS: Ampicillin/Sulbactam 1,500 MG in 0.9 % Sodium Chloride Mini Bag 100 ML IVPB SCH ×3 (04:54→18:31)
[2016-12-29] MEDS ORDERED: Calcium Gluconate 2,000 MG in D5% in Water 100 ML IVPB ONE (06:15)
--- NOTE | 2016-12-29 07:56 | Orthopedic Consult Note ---
Date of Encounter: 12/29/16 Time of Encounter: 07:45 History of Present Illness Chief complaint: Fall - Abdominal pain HPI: Ms. Vora is a 66 year old female, admitted from ED due to abdominal pain and fall. She is under the influence of IV pain medication, and is a poor historian at the time of exam. History based of medial records and notes from ED. She was at home, not feeling well due abdominal pain, she was trying to get up from floor while in the bathroom and hit her ankle and knee on the wall. She is unable to ambulate secondary to pain; Her pain is in her Left ankle and knee. She denied any previous trauma or injury. Denies N/T, or radiation of pain into upper leg or hip. Unable to add TREATMENT Plan at this time Nondisplaced Lateral Mallelous fracture: Plan is to start CAM walker boot; NWB x 1-2 weeks; Pain control and DVT prophylaxis with foot pumps Knee Effusion: Xrays reviewed - stable; no fracture evident. Focus on swelling control with ICE and elevation; Start PT once tolerated. May consider MRI as an outpatient secondary to current pancreatitis. f/up in 1-2 weeks with sports medicine - faxed to the floor Past Med Surg Social Fam HX - Past Medical History Medical history: non-contributory, other Psychiatric history: anxiety, depression, other - Past Surgical History Surgical History: , other - Social History Smoking Status: Never smoker Smokeless Tobacco Status: No Alcohol use: none Drug use: none - Family History Mother History Unknown: Yes Adopted: [place]: Mackenzie Wagner Age: 88 Family Member Ethnicity: Non- Living Status: Still Living Father History Unknown: Yes Adopted: [place]: Cali Wagner Age: 74 Living Status: Age at : 74 Cause of : pneumonia Hx Family Cardiac Disorders: No Hx Family Respiratory Disorders: No Hx Family Cancer: Yes Hx Family GI Disorders: No Hx Family Genitourinary Disorders: No Hx Family Endocrine Disorder: No Hx Family Musculoskeletal Disorders: No Hx Family Neuromuscular Disorders: No Hx Family Neurologic Disorders: No Hx Family HEENT Disorders: No Hx Family Autoimmune Disorders: No Hx Family Reproductive Disorders: No Hx Family Psychosocial Disorders: No Hx Family Medical Disorders: No Medications and Allergies Acetaminophen [Tylenol] 325 mg PO Q6HR PRN 12/29/16 [History] Ibuprofen [Motrin] 200 mg PO Q4HR PRN 12/29/16 [History] Lisinopril [Zestril] 5 mg PO DAILY 12/29/16 [History] Allergies No Known Allergies Allergy (Verified 12/29/16 09:53) All Systems Reviewed: A 10-system review of systems was performed and is negative for pertinent findings except as documented above in the HPI. - Constitutional Constitutional: as per HPI, frequent falls, other (Nausea, vomitting), no fever( s) - Cardiovascular Cardiovascular: syncope, no chest pain - Respiratory Respiratory: no cough - Musculoskeletal Musculoskeletal: as per HPI, abnormal gait, joint swelling, limited range of motion, tingling, no numbness, no radiating pain into limb Physical Exam - Constitutional Vitals: Temp Pulse Resp BP Pulse Ox 98.4 F 89 16 128/74 95 12/29/16 06:43 12/29/16 06:43 12/29/16 06:43 12/29/16 06:43 12/29/16 06:43 - Knee left Appearance: effusion Effusion grade: trace Varus alignment in stance: No Valgus alignment in stance: No Tenderness with palpation knee: anterior, medial, lateral Pain: with flexion Gait: other (nonambulatory) ROM: extension knee: Full ROM: flexion knee: Limited Crepitus with motion: No - Ankle & Foot left Ankle appearance: swelling (In a posterior splint with JOVANI wrap) Foot appearance: normal Tenderness with palpation: lateral ankle Ankle pain worse with weight bearing: Yes Ankle pain relieved by non-weight bearing: No Ankle alignment: normal ROM: dorsiflexion: abnormal ROM: plantarflexion: abnormal ROM: eversion: abnormal Results - Labs Result Diagrams: 12/28/16 21:08 12/28/16 21:08 Labs: Abnormal lab results WBC 14.7 K/mcL (4.3-11.1) H 12/28/16 21:08 Neutrophils # 11.9 K/mcL (1.6-8.9) H 12/28/16 21:08 Monocytes # 1.4 K/mcL (0.0-1.3) H 12/28/16 21:08 Immature Plt Fraction 14.4 % (1.1-6.1) H 12/28/16 21:08 APTT 24.7 Seconds (26.0-36.0) L 12/28/16 21:08 VBG pO2 57 mmHg (25-40) H 12/29/16 00:53 VBG Ionized Calcium 1.03 mmol/L (1.15-1.35) L 12/29/16 00:53 Potassium 3.3 mEq/L (3.5-4.5) L 12/28/16 21:08 Est GFR (Non-Af Amer) 59 (> 60) L 12/28/16 21:08 Glucose 167 mg/dL (70-99) H 12/28/16 21:08 POC Glucose 136 (58-89) H 12/28/16 20:00 Ionized Calcium 1.10 mmol/L (1.15-1.35) L 12/29/16 00:53 Total Bilirubin 5.9 mg/dL (0.2-1.2) H 12/28/16 21:08 Direct Bilirubin 4.3 mg/dL (0.0-0.5) H 12/28/16 21:08 Indirect Bilirubin 1.6 mg/dL (0.0-1.2) H 12/28/16 21:08 AST 743 Units/L (5-34) H 12/28/16 21:08 ALT 733 Units/L (0-55) H 12/28/16 21:08 Lactate Dehydrogenase 834 Units/L (159-327) H 12/29/16 00:53 C-Reactive Protein 10 mg/L (Less than 5) H 12/29/16 00:53 LDL Cholesterol, Calc 123 mg/dL (0-99) H 12/29/16 00:53 HDL Cholesterol 63 mg/dL (40-59) H 12/29/16 00:53 Amylase 3952 Units/L (25-125) H 12/29/16 00:53 Lipase > 63756 Units/L (8-78) H 12/29/16 00:53 Ur Specific [place] > 1.030 (1.010-1.025) H 12/29/16 03:20 Urine Bilirubin Small (Negative) H 12/29/16 03:20 Urine Microscopic WBC 3-5 per hpf (0-3) H 12/28/16 23:12 Ur Squamous Epith Cells Many per lpf (None-Few) H 12/28/16 23:12 All other labs normal. LEFT KNEE: IMPRESSION: No acute osseous abnormality of the left knee. LEFT ANKLE: IMPRESSION: 1. Lateral soft swelling at the left ankle with an acute nondisplaced avulsion fracture of the lateral malleolus. 2. Cortical step-off involving the anterior process of the calcaneus, consistent with an age-indeterminate fracture. Consult Discharge Plan - Plan Referrals: Donnie Keith DO [Primary Care Provider] -
--- NOTE | 2016-12-29 15:30 | Internal Med Progress Note ---
Date of Encounter: 12/29/16 Time of Encounter: 10:15 - Assessment and plan (1) Pancreatitis, acute Current Visit: Yes Status: Suspected Assessment and plan: Severe acute pancreatitis. Lipase level remains greater than 1000. Amylase and AST ALT are also elevated. CT scan shows the presence of gallstones. Continue supportive care with nothing by mouth status, IV fluids, IV pain medications. Surgery consultation. High risk for complications. Qualifiers: Pancreatitis type: biliary Acute pancreatitis complication: unspecified Qualified Code(s): K85.10 - Biliary acute pancreatitis without necrosis or infection (2) Acute abdominal pain syndrome Current Visit: Yes Status: Acute Assessment and plan: Due to acute pancreatitis. (3) Fall at home Current Visit: Yes Status: Acute Assessment and plan: From pain and dizziness. On fall precautions. Qualifiers: Encounter type: initial encounter Qualified Code(s): W19.XXXA - Unspecified fall, initial encounter; Y92.099 - Unspecified place in other non- institutional residence as the place of occurrence of the external cause (4) Bimalleolar fracture of left ankle Current Visit: Yes Status: Acute Assessment and plan: The appendix has been consulted. Left lower extremity in brace. Continue supportive care. We will follow orthopedic recommendations. Physical therapy when patient is able to tolerate. Qualifiers: Encounter type: initial encounter Fracture type: closed Qualified Code(s) : S82.842A - Displaced bimalleolar fracture of left lower leg, initial encounter for closed fracture (5) Postural dizziness with presyncope Current Visit: Yes Status: Acute Assessment and plan: Continue IV hydration. - Subjective Interval history: Patient complaining of left lower extremity pain and abdominal pain. Pain is 8 out of 10 in severity. Improves after she receives IV pain medications. Also complains of nausea. - Constitutional Vitals: Temp Pulse Resp BP Pulse Ox 99.0 F 96 16 133/74 91 L 12/29/16 10:34 12/29/16 12:00 12/29/16 10:34 12/29/16 12:00 12/29/16 10:34 General appearance: Present: A&O X 3, obese, answers questions appropriately Exam: Moderate distress - ENT ENT exam: Present: mucous membranes moist - Neck Neck exam general surgery: Present: supple, trachea midline. Absent: lymphadenopathy - Respiratory Respiratory exam: Present: CTAB. Absent: accessory muscle use, rales, rhonchi, wheezes - Cardiovascular Cardiovascular exam: Present: RRR, +S1, +S2. Absent: diastolic murmur, gallop, rubs, systolic murmur - GI/Abdominal GI/Abdominal exam: Present: normal bowel sounds, soft, tenderness (Epigastric), no peritoneal signs. Absent: distended - Extremities Exam Extremities exam: Present: warm, radial pulses palpable and symetrical. Absent : calf tenderness, cyanotic, pedal edema Additional comments: Left lower extremity in brace - Neurological Exam Neurological exam: Present: alert, CN II-XII intact, oriented X3, no focal deficits. Absent: facial droop, speech deficit - Skin Skin exam: Present: dry, intact Internal Medicine: Result - Labs CBC & Chem 7: 12/28/16 21:08 12/28/16 21:08 Labs: Cardiac Enzymes 12/29/16 12/29/16 12/29/16 Range/Units 00:53 06:22 12:54 Troponin I 0.00 0.00 0.01 (0-0.03) ng/mL Urine 12/29/16 Range/Units 03:20 Urine Color Yellow (Yellow) Urine Clarity Clear (Clear) Urine pH 6.0 (5.0-8.0) pH Units Ur Specific [place] > 1.030 H (1.010-1.025) Urine Protein Negative (Neg-Trace) mg/dL Urine Glucose (UA) Normal (Normal) mg/dL - ABG Interpretation ABG results: PT/INR, D-dimer PT 11.7 Seconds (9.4-12.1) 12/28/16 21:08 Consult Discharge Plan - Plan Referrals: Donnie Keith DO [Primary Care Provider] -
--- NOTE | 2016-12-29 16:05 | General Surgery Consult Note ---
Date of Encounter: 12/29/16 Time of Encounter: 15:58 Assessment and Plan (1) Gallstone pancreatitis Current Visit: Yes Status: Suspected Patient with persistent and worsening nausea/vomiting/epigastric and RUQ pain x 1 week. Epigastrum and RUQ pain on exam. Negative murhpy's sign. Multiple gallstones noted on CT with a distended gallbladder. Patient reports no alcohol use. Triglycerides: 47 Hepatitis panel: negative Mild leukocytosis of 14.7 Lipase > 07669 Amylase: 3952 Total bili: 5.9 AST: 743 ALT: 733 Presentation most consistent with gallstone pancreatitis Plan: NPO, pain control, antiemetics, IVF NS, trend lipase/amylase/hepatic panel /wbc History of Present Illness Consult date: 12/28/16 Reason for consult: gallstones Requesting physician: Lakshmi Gray History of present illness: Mrs. Vora is a pleasant 66 yo F who presented to [facility] ED via EMS for abdominal pain. She has a history significant for HTN and a past surgical history of (30 years prior). She states she has been having intermittent abdominal pain for the past few weeks. The pain is located in the RUQ and mid epigastric region. It is associated with nausea and vomiting. She has been unable to eat for the past few days without it causing pain. Yesterday the pain got acutely worse and she became very dizzy and fell down, breaking her ankle. She denies any fever,chills, hemoptysis, sob, chest pain, melena, hematochezia. Past Med Surg Social Fam HX - Past Medical History Medical history: non-contributory, other Psychiatric history: anxiety, depression, other - Past Surgical History Surgical History: , other - Social History Smoking Status: Never smoker Smokeless Tobacco Status: No Alcohol use: none Drug use: none - Family History Mother History Unknown: Yes Adopted: [place]: Mackenzie Wagner Age: 88 Family Member Ethnicity: Non- Living Status: Still Living Father History Unknown: Yes Adopted: [place]: Cali Wagner Age: 74 Living Status: Age at : 74 Cause of : pneumonia Hx Family Cardiac Disorders: No Hx Family Respiratory Disorders: No Hx Family Cancer: Yes Hx Family GI Disorders: No Hx Family Genitourinary Disorders: No Hx Family Endocrine Disorder: No Hx Family Musculoskeletal Disorders: No Hx Family Neuromuscular Disorders: No Hx Family Neurologic Disorders: No Hx Family HEENT Disorders: No Hx Family Autoimmune Disorders: No Hx Family Reproductive Disorders: No Hx Family Psychosocial Disorders: No Hx Family Medical Disorders: No Medications and Allergies Acetaminophen [Tylenol] 325 mg PO Q6HR PRN 12/29/16 [History] Ibuprofen [Motrin] 200 mg PO Q4HR PRN 12/29/16 [History] Lisinopril [Zestril] 5 mg PO DAILY 12/29/16 [History] Allergies No Known Allergies Allergy (Verified 12/29/16 09:53) Review of Systems All systems PM: A 10-system review of systems was performed and is negative for pertinent findings except as documented above in the HPI. - Constitutional as per HPI, anorexia - Cardiovascular as per HPI, no chest pain - Respiratory as per HPI - Gastrointestinal as per HPI, abdominal pain, nausea, vomiting, no coffee ground emesis, no constipation, no diarrhea, no hematemesis, no hematochezia General Surgery Exam Initial Vital Signs Temp Pulse Resp BP Pulse Ox 97.8 F 78 20 103/64 98 12/28/16 19:46 12/28/16 19:46 12/28/16 19:46 12/28/16 19:46 12/28/16 19:46 - General physical appearance well developed, well nourished, no distress - Neck trachea midline - Respiratory normal expansion, clear to auscultation - Cardiovascular Cardiovascular exam: Present: RRR, no murmurs/rubs/gallops - Abdomen Abdomen general surgery: Present: bowel sounds present, soft, tender. Absent: distended, guarding, rebound, rigid, peritoneal Abdominal Tenderness: Present: epigastic, RUQ - Neurologic Present: CN 2-12 grossly intact - Psychiatric Psychiatric general surgery: Present: A&Ox3 Exam Initial Vital Signs Temp Pulse Resp BP Pulse Ox 97.8 F 78 20 103/64 98 12/28/16 19:46 12/28/16 19:46 12/28/16 19:46 12/28/16 19:46 12/28/16 19:46 Results - Labs 12/28/16 21:08 12/28/16 21:08 Abnormal lab results WBC 14.7 K/mcL (4.3-11.1) H 12/28/16 21:08 Neutrophils # 11.9 K/mcL (1.6-8.9) H 12/28/16 21:08 Monocytes # 1.4 K/mcL (0.0-1.3) H 12/28/16 21:08 Immature Plt Fraction 14.4 % (1.1-6.1) H 12/28/16 21:08 APTT 24.7 Seconds (26.0-36.0) L 12/28/16 21:08 VBG pO2 57 mmHg (25-40) H 12/29/16 00:53 VBG Ionized Calcium 1.03 mmol/L (1.15-1.35) L 12/29/16 00:53 Potassium 3.3 mEq/L (3.5-4.5) L 12/28/16 21:08 Est GFR (Non-Af Amer) 59 (> 60) L 12/28/16 21:08 Glucose 167 mg/dL (70-99) H 12/28/16 21:08 POC Glucose 136 (58-89) H 12/28/16 20:00 Ionized Calcium 1.10 mmol/L (1.15-1.35) L 12/29/16 00:53 Total Bilirubin 5.9 mg/dL (0.2-1.2) H 12/28/16 21:08 Direct Bilirubin 4.3 mg/dL (0.0-0.5) H 12/28/16 21:08 Indirect Bilirubin 1.6 mg/dL (0.0-1.2) H 12/28/16 21:08 AST 743 Units/L (5-34) H 12/28/16 21:08 ALT 733 Units/L (0-55) H 12/28/16 21:08 Lactate Dehydrogenase 834 Units/L (159-327) H 12/29/16 00:53 C-Reactive Protein 10 mg/L (Less than 5) H 12/29/16 00:53 LDL Cholesterol, Calc 123 mg/dL (0-99) H 12/29/16 00:53 HDL Cholesterol 63 mg/dL (40-59) H 12/29/16 00:53 Amylase 3952 Units/L (25-125) H 12/29/16 00:53 Lipase > 33365 Units/L (8-78) H 12/29/16 00:53 Ur Specific [place] > 1.030 (1.010-1.025) H 12/29/16 03:20 Urine Bilirubin Small (Negative) H 12/29/16 03:20 Urine Microscopic WBC 3-5 per hpf (0-3) H 12/28/16 23:12 Ur Squamous Epith Cells Many per lpf (None-Few) H 12/28/16 23:12 Diabetes panel 12/29/16 12/29/16 Range/Units 00:53 00:53 Hemoglobin A1c 5.4 ( - 5.6) % Triglycerides 47 (< 150) mg/dL HDL Cholesterol 63 H (40-59) mg/dL Thyroid panel 12/29/16 Range/Units 00:53 TSH 0.624 (0.350-4.840) mcIU/mL Calcium panel 12/29/16 Range/Units 00:53 Phosphorus 3.9 (2.3-4.7) mg/dL Pituitary panel 12/29/16 12/29/16 Range/Units 00:53 00:53 TSH 0.624 (0.350-4.840) mcIU/mL Prolactin 9.30 (5.18-26.53) ng/mL All other labs normal. Consult Discharge Plan - Plan Referrals: Donnie Keith DO [Primary Care Provider] -
[2016-12-29] MEDS: *HR* Heparin 5,000 UNIT/ML VIAL SQ SCH (18:30)
[2016-12-29] MEDS: 0.9 % Sodium Chloride 1,000 ML IVC SCH (18:35)
--- NOTE | 2016-12-29 18:37 | Electrocardiograph Report ---
[address] [address] Test Date: 2016-12-28 Pat Name: Abena Vora Department: 102 Room: [facility] Gender: F Career Services Assistant: : [id number] Requested By: Tucker Lilly Order Number: [id number] Reading MD: Joel Velazquez MD Measurements Intervals [place] Rate: 78 P: 52 UT: 163 QRS: -1 QRSD: 89 T: 23 QT: 337 QTc: 370 Interpretive Statements SINUS RHYTHM MINIMAL VOLTAGE CRITERIA FOR LVH Electronically Signed On 12-29-2016 18:36:20 EDT by Joel Velazquez MD
[2016-12-29] MEDS: Ketorolac 30 MG/ML VIAL IVP PRN (21:16)
[2016-12-30 01:21] LABS: Basophils % 0.2 %; Eosinophils % 0.1 %; Hematocrit 33.9 % (35.3-44.9); Immature Granulocytes % 0.4 % (0-4); Lymphocytes # 1.9 K/mcL (0.6-4.6); Lymphocytes % 19.4 %; Mean Corpuscular HGB Conc 32.7 g/dL (31.6-35.5); Mean Corpuscular Hemoglobin 30.3 pg (28.0-33.3); Mean Corpuscular Volume 92.6 fL (83.0-100.0); Mean Platelet Volume 12.4 fL (9.4-12.4); Monocytes # 1.4 K/mcL (0.0-1.3); Monocytes % 14.6 %; Neutrophils # 6.2 K/mcL (1.6-8.9); Platelet Count 127 K/mcL (140-400); Red Blood Count 3.66 M/mcL (3.82-4.97); Red Cell Distribution Width 13.4 % (11.5-14.5); Segmented Neutrophils % 65.3 %
[2016-12-30 01:24] LABS: Hemoglobin 11.1 g/dL (11.5-15.4)
[2016-12-30] MEDS: 0.9 % Sodium Chloride 1,000 ML IVC SCH ×2 (01:27→13:03)
[2016-12-30] MEDS: Ampicillin/Sulbactam 1,500 MG in 0.9 % Sodium Chloride Mini Bag 100 ML IVPB SCH ×3 (01:27→13:02)
[2016-12-30] MEDS: *HR* HYDROmorphone (PF) 1 MG/ML SYRINGE IVP PRN (01:34)
[2016-12-30 01:38] LABS: Alanine Aminotransferase 358 Units/L (0-55); Alkaline Phosphatase 75 Units/L (38-126); Amylase 436 Units/L (25-125); BUN/Creatinine Ratio 18 (6-26); Blood Urea Nitrogen 12 mg/dL (7-20); Calcium 8.3 mg/dL (8.6-10.8); Carbon Dioxide 23 mEq/L (19-29); Chloride 111 mEq/L (98-109); Globulin 2.9 g/dL (2.4-3.5); Glucose 87 mg/dL (70-99); Lipase 661 Units/L (8-78); Osmolality,Calculated 295 (280-300); Potassium 3.4 mEq/L (3.5-4.5); Sodium 143 mEq/L (136-145); Total Protein 5.8 g/dL (6.0-8.3); eGFR For African Americans > 60 (> 60); eGFR For Non-African Americans > 60 (> 60)
[2016-12-30 02:04] LABS: Albumin 2.9 g/dL (3.5-5.0); Aspartate Amino Transferase 156 Units/L (5-34); Bilirubin,Total 1.4 mg/dL (0.2-1.2); Magnesium 2.1 mg/dL (1.6-2.6)
[2016-12-30] MEDS: *HR* Heparin 5,000 UNIT/ML VIAL SQ SCH ×2 (06:08→17:53)
[2016-12-30] MEDS: Pantoprazole 40 MG VIAL IVP SCH ×2 (06:11→17:53)
[2016-12-30] MEDS: Ketorolac 30 MG/ML VIAL IVP PRN ×3 (06:14→21:18)
--- NOTE | 2016-12-30 08:10 | Orthopedics Progress Note ---
Date of Encounter: 12/29/16 Time of Encounter: 08:08 - Assessment and Plan (1) Ankle fracture, lateral malleolus, closed Current Visit: Yes Status: Acute Continue with non-operative management - In CAM walker boot, NWB. Continue PT/OT. Continue pain control and DVT prophylaxis. Advise to ICE and elevate. At this time, she will follow up as outpatient in 1-2 weeks. Orthopedics is signing off. Appt set and faxed to the floor. Qualifiers: Encounter type: subsequent encounter Fracture alignment: nondisplaced Laterality: left Fracture healing: with routine healing Qualified Code(s): S82.65XD - Nondisplaced fracture of lateral malleolus of left fibula, subsequent encounter for closed fracture with routine healing (2) Fall at home Current Visit: Yes Status: Acute Qualifiers: Encounter type: initial encounter Qualified Code(s): W19.XXXA - Unspecified fall, initial encounter; Y92.099 - Unspecified place in other non- institutional residence as the place of occurrence of the external cause (3) Pancreatitis, acute Current Visit: Yes Status: Suspected Plan for laparoscopic cholecystectomy with cholangiogram, possible open with Dr. Sheldon 12/31/16 per surgery note. Qualifiers: Pancreatitis type: biliary Acute pancreatitis complication: unspecified Qualified Code(s): K85.10 - Biliary acute pancreatitis without necrosis or infection Subjective Principal diagnosis: Fall, Abdominal Pain, Left Ankle Fracture Interval history: Hospital Day #2 Patient is doing fair, A&O x 3 in hospital bed, comfortable. Admits to pain improving; but still in LLE. PT/OT did transfer her yesterday with minimal difficulty. Afebrile, WBC trending down from 14. Left Lower leg - CAM walker boot in place - NWB She is currently NPO. Objective Vital signs: LLE: CAM Walker boot in place with JOVANI wrap to Left ankle - minimal swelling, no obvious erythema present. Ankle ROM limited; she is able to move toes. NV intact distally Left Knee: Mild effusion present, no erythema or warmth. Minimal tenderness to anterior knee. ROM intact - stiffness noted; NV intact. Vital Signs Temp Pulse Resp BP Pulse Ox 12/30/16 06:40 98.0 F 81 18 112/64 95 12/30/16 04:00 98.4 F 82 17 121/70 94 L 03/31/17 00:00 98.2 F 87 16 127/66 95 12/29/16 20:00 98.8 F 86 16 146/63 96 12/29/16 16:29 86 14 114/68 95 12/29/16 15:58 98.3 F 86 14 114/68 95 12/29/16 12:00 96 133/74 12/29/16 10:34 99.0 F 85 16 116/69 91 L Intake and Output 12/29/16 12/30/16 12/30/16 23:59 07:59 15:59 Intake Total 200 / 200 1100 / 1100 Output Total 1400 / 1400 Balance -1200 / -1200 1100 / 1100 Intake: IV Fluids 200 / 200 1100 / 1100 0.9 % Sodium Chloride 1, 1000 / 1000 000 ML @ 100 mls/hr IVC . Q10H [facility] Rx#:[id number] Unasyn 1,500 mg In 0.9 % 200 / 200 100 / 100 Sodium Chloride (Mini-Bag +) 100 ML @ 200 mls/hr IVPB Q6HR [facility]OX[facility] Rx#: [id number] Oral 0 / 0 0 / 0 Output: Catheter 1400 / 1400 Other: Weight 76 kg Patient Weight 12/30/16 23:59 Weight 76 kg - Labs CBC & BMP: 12/30/16 01:08 12/30/16 01:08 Labs: Abnormal lab results RBC 3.66 M/mcL (3.82-4.97) L 12/30/16 01:08 Hgb 11.1 g/dL (11.5-15.4) L D 12/30/16 01:08 Hct 33.9 % (35.3-44.9) L 12/30/16 01:08 Plt Count 127 K/mcL (140-400) L 12/30/16 01:08 Monocytes # 1.4 K/mcL (0.0-1.3) H 12/30/16 01:08 Immature Plt Fraction 14.4 % (1.1-6.1) H 12/28/16 21:08 APTT 24.7 Seconds (26.0-36.0) L 12/28/16 21:08 VBG pO2 57 mmHg (25-40) H 12/29/16 00:53 VBG Ionized Calcium 1.03 mmol/L (1.15-1.35) L 12/29/16 00:53 Potassium 3.4 mEq/L (3.5-4.5) L 12/30/16 01:08 Chloride 111 mEq/L (98-109) H 12/30/16 01:08 POC Glucose 136 (58-89) H 12/28/16 20:00 Calcium 8.3 mg/dL (8.6-10.8) L 12/30/16 01:08 Ionized Calcium 1.10 mmol/L (1.15-1.35) L 12/29/16 00:53 Total Bilirubin 1.4 mg/dL (0.2-1.2) H D 12/30/16 01:08 Direct Bilirubin 4.3 mg/dL (0.0-0.5) H 12/28/16 21:08 Indirect Bilirubin 1.6 mg/dL (0.0-1.2) H 12/28/16 21:08 AST 156 Units/L (5-34) H 12/30/16 01:08 ALT 358 Units/L (0-55) H 12/30/16 01:08 Lactate Dehydrogenase 834 Units/L (159-327) H 12/29/16 00:53 C-Reactive Protein 10 mg/L (Less than 5) H 12/29/16 00:53 Serum Total Protein 5.8 g/dL (6.0-8.3) L 12/30/16 01:08 Albumin 2.9 g/dL (3.5-5.0) L D 12/30/16 01:08 Albumin/Globulin Ratio 1.0 (1.1-2.2) L 12/30/16 01:08 LDL Cholesterol, Calc 123 mg/dL (0-99) H 12/29/16 00:53 HDL Cholesterol 63 mg/dL (40-59) H 12/29/16 00:53 Amylase 436 Units/L (25-125) H 12/30/16 01:08 Lipase 661 Units/L (8-78) H 12/30/16 01:08 Ur Specific [place] > 1.030 (1.010-1.025) H 12/29/16 03:20 Urine Bilirubin Small (Negative) H 12/29/16 03:20 Urine Microscopic WBC 3-5 per hpf (0-3) H 12/28/16 23:12 Ur Squamous Epith Cells Many per lpf (None-Few) H 12/28/16 23:12 - VTE Documentation of Mechanical Device: Venous foot pump, device Consult Discharge Plan - Plan Referrals: Donnie Keith DO [Primary Care Provider] -
--- NOTE | 2016-12-30 10:36 | General Surgery Progress Note ---
Date of Encounter: 12/29/16 Time of Encounter: 10:20 - Assessment and Plan (1) Gallstone pancreatitis Current Visit: Yes Status: Acute Multiple gallstones noted on CT with a distended gallbladder MRI- acute uncomplicared pancreatitis with no evidence of choledocholithiasis, CBD measures 4mm, cholelithiasis without cholecystitis Patient reports no alcohol use Triglycerides: 47 Hepatitis panel: negative Clear liquids today NPO after midnight Plan for laparoscopic cholecystectomy with cholangiogram, possible open with Dr. Sheldon 12/31/16 IV antibiotics per hospitalist IV fluids TB- 5.9>1.4 AST/ALT improving IS every 1 hour while awake Repeat am labs (2) DVT prophylaxis Current Visit: Yes Status: Acute Heparin 5,000 units SQ twice daily for DVT prophylaxis Subjective Patient reports: feels better, still having pain, pain is less, flatus, bowel movement (12/29/16), afebrile Objective Vital Signs - Last 8 Hours Temp Pulse Resp BP Pulse Ox 12/30/16 06:40 98.0 F 81 18 112/64 95 12/30/16 04:00 98.4 F 82 17 121/70 94 L Intake and Output 12/29/16 12/30/16 12/30/16 23:59 07:59 15:59 Intake Total 200 / 200 1100 / 1100 Output Total 1400 / 1400 Balance -1200 / -1200 1100 / 1100 Intake: IV Fluids 200 / 200 1100 / 1100 0.9 % Sodium Chloride 1, 1000 / 1000 000 ML @ 100 mls/hr IVC . Q10H [facility] Rx#:[id number] Unasyn 1,500 mg In 0.9 % 200 / 200 100 / 100 Sodium Chloride (Mini-Bag +) 100 ML @ 200 mls/hr IVPB Q6HR [facility] Rx#: [id number] Oral 0 / 0 0 / 0 Output: Catheter 1400 / 1400 Other: Weight 76 kg Patient Weight 12/30/16 23:59 Weight 76 kg - General physical appearance well developed, well nourished, no distress - Eyes PERRL, normal ocular movement - ENT normal mucosa, atraumatic, normocephalic - Neck Neck exam: trachea midline - Respiratory normal expansion, normal respiratory effort, clear to auscultation - Cardiovascular Cardiovascular exam: Present: RRR - Abdomen Abdomen: Present: bowel sounds present, soft, tender (minimal 2/10) Abdominal Tenderness: epigastic - Integumentary no rash - Neurologic CN 2-12 grossly intact - Musculoskeletal other (LLE ankle fracture with boot in place) - Psychiatric oriented to time, oriented to person, oriented to place, speech is normal, memory intact - Labs 12/30/16 01:08 12/30/16 01:08 Diabetes panel 12/30/16 Range/Units 01:08 Sodium 143 (136-145) mEq/L Potassium 3.4 L (3.5-4.5) mEq/L Chloride 111 H (98-109) mEq/L Carbon Dioxide 23 (19-29) mEq/L BUN 12 (7-20) mg/dL Creatinine 0.66 (0.57-1.11) mg/dL Glucose 87 (70-99) mg/dL Calcium 8.3 L (8.6-10.8) mg/dL AST 156 H (5-34) Units/L ALT 358 H (0-55) Units/L Alkaline Phosphatase 75 (38-126) Units/L Albumin 2.9 L D (3.5-5.0) g/dL Calcium panel 12/30/16 Range/Units 01:08 Calcium 8.3 L (8.6-10.8) mg/dL Albumin 2.9 L D (3.5-5.0) g/dL Pituitary panel 12/30/16 Range/Units 01:08 Sodium 143 (136-145) mEq/L Potassium 3.4 L (3.5-4.5) mEq/L Chloride 111 H (98-109) mEq/L Carbon Dioxide 23 (19-29) mEq/L BUN 12 (7-20) mg/dL Creatinine 0.66 (0.57-1.11) mg/dL Glucose 87 (70-99) mg/dL Calcium 8.3 L (8.6-10.8) mg/dL Adrenal panel 12/30/16 Range/Units 01:08 Sodium 143 (136-145) mEq/L Potassium 3.4 L (3.5-4.5) mEq/L Chloride 111 H (98-109) mEq/L Carbon Dioxide 23 (19-29) mEq/L BUN 12 (7-20) mg/dL Creatinine 0.66 (0.57-1.11) mg/dL Glucose 87 (70-99) mg/dL Calcium 8.3 L (8.6-10.8) mg/dL Total Bilirubin 1.4 H D (0.2-1.2) mg/dL AST 156 H (5-34) Units/L ALT 358 H (0-55) Units/L Alkaline Phosphatase 75 (38-126) Units/L Albumin 2.9 L D (3.5-5.0) g/dL - VTE Documentation of Mechanical Device: Venous foot pump, device Consult Discharge Plan - Plan Referrals: Donnie Keith DO [Primary Care Provider] -
--- NOTE | 2016-12-30 15:55 | Internal Med Progress Note ---
Date of Encounter: 12/30/16 Time of Encounter: 11:45 - Assessment and plan (1) Pancreatitis, acute Current Visit: Yes Status: Suspected Assessment and plan: Most likely biliary pancreatitis. Continue supportive care. Clinically improving. Surgery following. Plan for laparoscopic cholecystectomy tomorrow. Qualifiers: Pancreatitis type: biliary Acute pancreatitis complication: no infection or necrosis Qualified Code(s): K85.10 - Biliary acute pancreatitis without necrosis or infection (2) Acute abdominal pain syndrome Current Visit: Yes Status: Acute Assessment and plan: Due to acute pancreatitis (3) Fall at home Current Visit: Yes Status: Acute Qualifiers: Encounter type: initial encounter Qualified Code(s): W19.XXXA - Unspecified fall, initial encounter; Y92.099 - Unspecified place in other non- institutional residence as the place of occurrence of the external cause (4) Bimalleolar fracture of left ankle Current Visit: Yes Status: Acute Assessment and plan: Being managed nonoperatively. Continue physical therapy. Orthopedics to follow patient in clinic in 1-2 weeks. Qualifiers: Encounter type: initial encounter Fracture type: closed Qualified Code(s) : S82.842A - Displaced bimalleolar fracture of left lower leg, initial encounter for closed fracture (5) Postural dizziness with presyncope Current Visit: Yes Status: Acute Assessment and plan: Likely related to pancreatitis and dehydration. Continue IV hydration. - Subjective Interval history: Abdominal pain and left lower extremity pain are improving. Denies any new complaints at this time. No nausea or vomiting reported today - Constitutional Vitals: Temp Pulse Resp BP Pulse Ox 98.2 F 94 18 130/72 93 12/30/16 14:48 12/30/16 14:48 12/30/16 14:48 12/30/16 14:48 12/30/16 14:48 General appearance: Present: cooperative, mild distress, A&O X 3, obese, answers questions appropriately - Respiratory Respiratory exam: Present: CTAB. Absent: accessory muscle use, rales, rhonchi, wheezes - Cardiovascular Cardiovascular exam: Present: RRR, +S1, +S2. Absent: diastolic murmur, gallop, rubs, systolic murmur - GI/Abdominal GI/Abdominal exam: Present: normal bowel sounds, soft, tenderness (Mild epigastric), no peritoneal signs. Absent: distended - Extremities Exam Extremities exam: Present: warm, radial pulses palpable and symetrical. Absent : calf tenderness, cyanotic, pedal edema Additional comments: Left lower extremity currently in brace. Range of motion at ankle improving - Neurological Exam Neurological exam: Present: alert, oriented X3, no focal deficits. Absent: facial droop, speech deficit - Skin Skin exam: Present: dry, intact Internal Medicine: Result - Labs CBC & Chem 7: 12/30/16 01:08 12/30/16 01:08 - ABG Interpretation ABG results: PT/INR, D-dimer PT 11.7 Seconds (9.4-12.1) 12/28/16 21:08 - VTE Documentation of Mechanical Device: Venous foot pump, device Consult Discharge Plan - Plan Referrals: Donnie Keith DO [Primary Care Provider] - - Attending Attestation This document has been at least partially created by [employer] recognition technology by Dr. Farfan. Errors in grammar, wording or other phrases may exist. If errors are found after the documentation is signed, they will be addressed individually in the addendum section of this document when appropriate.
[2016-12-31] MEDS: 0.9 % Sodium Chloride 1,000 ML IVC SCH (02:27)
[2016-12-31 05:04] LABS: Basophils % 0.4 %; Eosinophils # 0.1 K/mcL (0.0-0.6); Eosinophils % 1.7 %; Hematocrit 31.8 % (35.3-44.9); Hemoglobin 10.6 g/dL (11.5-15.4); Immature Granulocytes % 0.4 % (0-4); Lymphocytes % 26.3 %; Mean Corpuscular HGB Conc 33.3 g/dL (31.6-35.5); Mean Corpuscular Hemoglobin 30.5 pg (28.0-33.3); Mean Corpuscular Volume 91.6 fL (83.0-100.0); Mean Platelet Volume 13.1 fL (9.4-12.4); Monocytes # 1.1 K/mcL (0.0-1.3); Neutrophils # 4.3 K/mcL (1.6-8.9); Platelet Count 112 K/mcL (140-400); Red Blood Count 3.47 M/mcL (3.82-4.97); Red Cell Distribution Width 13.2 % (11.5-14.5); Segmented Neutrophils % 57.2 %
[2016-12-31 05:26] LABS: Alanine Aminotransferase 214 Units/L (0-55); Albumin 2.6 g/dL (3.5-5.0); Albumin/Globulin Ratio 0.9 (1.1-2.2); Alkaline Phosphatase 68 Units/L (38-126); Aspartate Amino Transferase 61 Units/L (5-34); BUN/Creatinine Ratio 16 (6-26); Bilirubin,Indirect 1.2 mg/dL (0.0-1.2); Bilirubin,Total 1.7 mg/dL (0.2-1.2); Blood Urea Nitrogen 10 mg/dL (7-20); Calcium 8.2 mg/dL (8.6-10.8); Carbon Dioxide 20 mEq/L (19-29); Chloride 111 mEq/L (98-109); Glucose 89 mg/dL (70-99); Lipase 152 Units/L (8-78); Osmolality,Calculated 293 (280-300); Potassium 3.5 mEq/L (3.5-4.5); Sodium 142 mEq/L (136-145); Total Protein 5.6 g/dL (6.0-8.3); eGFR For African Americans > 60 (> 60); eGFR For Non-African Americans > 60 (> 60)
[2016-12-31 05:37] LABS: Bilirubin,Direct 0.5 mg/dL (0.0-0.5)
[2016-12-31] MEDS: Pantoprazole 40 MG VIAL IVP SCH ×2 (05:53→18:36)
[2016-12-31] MEDS: *HR* Heparin 5,000 UNIT/ML VIAL SQ SCH ×2 (05:54→18:36)
[2016-12-31] MEDS: Ketorolac 30 MG/ML VIAL IVP PRN (06:02)
--- NOTE | 2016-12-31 07:42 | Anesthesia Evaluation PreOp ---
Date of Encounter: 12/31/16 Time of Encounter: 07:40 - Past History Planned Operation: Lap Cholecystectomy Cardiac History: Denies any Significant Hx Pulmonary History: Denies Any Significant HX CREATIVE COORDINATOR History: Denies Any Significant HX Other Medical History: Other (Anxiety, Depression) Anesthesia History: No Prior Anesthetic Complications Alcohol Use: none Drug use: none Medications and Allergies Acetaminophen [Tylenol] 325 mg PO Q6HR PRN 12/29/16 [History] Ibuprofen [Motrin] 200 mg PO Q4HR PRN 12/29/16 [History] Lisinopril [Zestril] 5 mg PO DAILY 12/29/16 [History] Allergies No Known Allergies Allergy (Verified 12/29/16 09:53) - Meds/Allergy Pre-op Review Medications Reviewed: Yes Allergies Reviewed: Yes Beta Blockers on Current Med List: No Anesthesia Results - Labs 12/31/16 04:43 12/31/16 04:43 Laboratory Tests 12/31/16 12/31/16 12/31/16 04:43 04:43 05:26 Hgb 10.6 L Hct 31.8 L Plt Count 112 L Sodium 142 Potassium 3.5 Chloride 111 H Carbon Dioxide 20 BUN 10 Creatinine 0.61 POC Glucose 87 - Imaging EKG: report reviewed (SR) Additional studies: CT Scan Head WNL Anesthesia Exam O2 Sat Weight 81.828 kg O2 Sat by Pulse Oximetry 95 O2 Sat by Pulse Oximetry 95 O2 Sat by Pulse Oximetry 96 O2 Sat by Pulse Oximetry 93 O2 Sat by Pulse Oximetry 94 Vital Signs Temp Pulse Resp BP Pulse Ox 97.8 F 78 20 103/64 98 12/28/16 19:46 12/28/16 19:46 12/28/16 19:46 12/28/16 19:46 12/28/16 19:46 Height: 5'6 Weight: 180 lbs NPO (# of Hours): MN Pain Scale: 0 - HEENT Pupil (Motor): Pupils equal, EOMI Mallampati: II Teeth: Normal Oral Opening: Greater than 3 - CREATIVE COORDINATOR LOC: Oriented CREATIVE COORDINATOR Motor: Normal RUE, Normal LUE, Normal RLE, Normal LLE, Normal Face CREATIVE COORDINATOR Sensory: Normal: RUE, LUE, RLE, LLE, Face - Cardiac Rhythm: Regular Murmur: None JVD: No Carotid Bruit: No - Pulmonary Breath Sounds: bilateral Clear Respiratory Effort: Symmetrical Anesthesia Assess/Plan ASA Score: 2 Modified [place] Scale for Level of Consciousness: Cooperative, oriented, and tranquil Anesthetic Plan: General Monitoring Plan: Standard Monitors Recovery Plan: PACU (Discussed GA, agrees to proceed)
[2016-12-31] MEDS ORDERED: Ondansetron 4 MG/2 ML VIAL ONE (07:52)
[2016-12-31] MEDS ORDERED: *HR* Propofol 200 MG/20 ML VIAL IVP ONE (07:52)
[2016-12-31] MEDS ORDERED: *HR* FentaNYL (PF) 100 MCG/2 ML VIAL ONE (07:52)
[2016-12-31] MEDS ORDERED: Dexamethasone 4 MG/ML VIAL ONE (07:52)
[2016-12-31] MEDS ORDERED: Lidocaine -MPF 2% 2 ML VIAL ONE (07:52)
[2016-12-31] MEDS ORDERED: *HR* Rocuronium Bromide 50 MG/5 ML VIAL ONE (07:52)
[2016-12-31] MEDS ORDERED: Lidocaine -MPF 4% 5 ML AMPUL ONE (07:55)
[2016-12-31] MEDS: Ringers Solution, Lactated 1,000 ML IVC SCH (08:05)
[2016-12-31] MEDS ORDERED: CefOXitin 2,000 MG VIAL IVPB ONE (08:21)
[2016-12-31] MEDS ORDERED: *HR* Phenylephrine 10 MG/ML VIAL ONE (08:23)
[2016-12-31] MEDS ORDERED: cefOXitin 2,000 MG in D5% in Water (Mini-Bag+) 100 ML IVPB ONE (08:38)
[2016-12-31] MEDS ORDERED: Neostigmine Methylsulfate 3 MG/3 ML SYRINGE ONE (09:14)
[2016-12-31] MEDS ORDERED: *HR* HYDROmorphone 2 MG/ML SYRINGE ONE (09:31)
--- NOTE | 2016-12-31 09:49 | Operative Note ---
Date of procedure: 12/31/16 Pre-op diagnosis: Gallstone pancreatitis Post-op diagnosis: same Procedure: Laparoscopic cholecystectomy Complications: none immediate Anesthesia: GETA, local Local Anesthetics: 0.5% Sensorcaine HCL SubQ (cc) (20) Surgeon: Barbara Sheldon Plant Guide: Lisa Powers Estimated blood loss (cc): 20 Specimen: gallbladder and contents Condition: stable Disposition: PACU Procedure in Detail: The patient was brought into the operating suite and placed supine on the operating table. Sign-in was performed and everyone was in agreement. Anesthesia was induced and patient was endotracheally intubated by anesthesia without incident and they also placed an OG tube. The abdomen was prepped and draped in the usual sterile fashion. A timeout was performed again everyone was in agreement. A supraumbilical incision was made through the skin into the subcutaneous tissue with an 11 blade. Towel clamps were placed on either side of the umbilicus for retraction. S retractors were used to dissect down to the anterior abdominal wall linea alba fascia. A Veress needle was placed through this incision and a water drop test confirmed placement and the abdomen was insufflated. The abdomen was entered with a 5 mm 0 degree laparoscope on a 5 mm X-sherrie trocar. The area and entry was visualized was no bleeding and no apparent bowel injury. A 5 mm subxiphoid port was placed under direct visualization after first incising the skin with an 11 blade. A right upper quadrant subcostal position midclavicular line 5 mm port was placed under direct visualization after first incising skin with 11 blade. The laparoscope was placed in this and we exchanged the supraumbilical port for a 12 mm port under direct visualization. The last 5 mm port was placed in the right upper quadrant subcostal position anterior axillary line after first incising the skin with an 11 blade. The patient was placed in steep reverse Trendelenburg left side down position. The dome of the gallbladder was grasped and retracted cephalad. Omental adhesions to the body and infundibulum of the gallbladder were taken down bluntly with the [place]. The infundibulum was grasped and retracted laterally. Using the [place] we dissected out the cystic duct and cystic artery which was difficult due to inflammation and friability of tissue. Two 5 mm hemoclips were placed distally on the cystic duct one proximally and it was transected with curved scissors. The cystic artery was doubly clipped proximally, once distally and transected with curved scissors. The gallbladder was removed off the cystic plate with the Bovie which again was difficult due to inflammation and friability of the tissue. Any bleeding points were stopped with the Bovie. The gallbladder was placed in a laparoscopic Endo Catch bag and removed via the supraumbilical incision site. The inferior edge of the liver was bluntly retracted cephalad and the cystic plate was copiously irrigated with sterile saline. There was no bleeding or apparent bile leak from the cystic plate and the clips on the cystic artery and duct were intact. A 10 mmJP drain was placed in the gallbladder fossa out through the RUQ lateral port site. The EDINSON drain was secured with a 2-0 silk stitch to the skin. All irrigation was suctioned free from the abdomen. All insufflation was suctioned free from the abdomen and the ports removed. The abdominal wall at the supraumbilical incision site was closed with a 0 Vicryl [id number] stitch. 30 mL of 0.5% Marcaine was injected subcutaneously at the 4 port sites. The skin at the two 5 mm port sites were closed with 4-0 Monocryl interrupted subcuticular stitches. The skin at the supraumbilical incision site was closed with a 4-0 Monocryl running subcuticular stitch. Steri-Strips were applied to all wounds. The patient was awoken in the operating suite having tolerated the procedure well and were taken to PACU in stable condition after all lap and ensuring counts were correct at the end of the case.
[2016-12-31] MEDS ORDERED: *HR* Promethazine 25 MG/ML VIAL IVP PRN (10:45)
[2016-12-31] MEDS ORDERED: 0.9 % Sodium Chloride 1,000 ML IVC SCH (10:45)
[2016-12-31] MEDS ORDERED: Naloxone 0.4 MG/ML INJ IVP PRN (10:45)
[2016-12-31] MEDS ORDERED: *HR* HYDROmorphone (PF) 1 MG/ML SYRINGE IVP PRN (10:45)
--- NOTE | 2016-12-31 11:48 | Anesthesia Evaluation Post Op ---
Date of Encounter: 12/31/16 Time of Encounter: 10:20 - Vital Signs Vital Signs: Vital Signs/O2 Sat/Glucose, Most Current Temp Pulse Resp BP Pulse Ox 12/31/16 10:44 96 12/31/16 10:30 98.5 F 72 16 124/69 96 12/31/16 10:17 97.8 F 79 16 122/71 94 12/31/16 10:07 76 16 119/72 96 12/31/16 09:57 80 16 124/74 96 12/31/16 09:47 97.7 F 80 16 117/62 91 - Lungs Lungs: Clear Ascult./Percussion - Airway Airway: Non-obstructed - Cardiovascular Regular Rate - Mental Status Mental Status: Alert & Oriented, Answers Appropriately - Pain Pain Scale: 0 - Nausea Vomiting Nausea Vomiting: Not Present - Hydration Hydration: NPO - Discharge PostOp Status: Transfer Patient to floor
[2016-12-31] MEDS: *HR* OxyCODONE/APAP 5/325 TABLET PO PRN ×2 (12:35→23:02)
--- NOTE | 2016-12-31 16:26 | Internal Med Progress Note ---
Date of Encounter: 12/31/16 Time of Encounter: 17:02 - Assessment and plan (1) Pancreatitis, acute Current Visit: Yes Status: Acute Assessment and plan: Resolving. Patient underwent laparoscopic cholecystectomy today. Doing better now. Moderate risk for complications from surgery. Qualifiers: Pancreatitis type: biliary Acute pancreatitis complication: no infection or necrosis Qualified Code(s): K85.10 - Biliary acute pancreatitis without necrosis or infection (2) Acute abdominal pain syndrome Current Visit: Yes Status: Acute Assessment and plan: Due to acute pancreatitis. (3) Fall at home Current Visit: Yes Status: Acute Assessment and plan: Evaluated by physical therapy. Recommended swing bed/inpatient rehabilitation Qualifiers: Encounter type: initial encounter Qualified Code(s): W19.XXXA - Unspecified fall, initial encounter; Y92.099 - Unspecified place in other non- institutional residence as the place of occurrence of the external cause (4) Bimalleolar fracture of left ankle Current Visit: Yes Status: Acute Assessment and plan: Evaluated by orthopedics. Recommended nonsurgical management. He is currently in brace. On DVT prophylaxis. Discharge to inpatient rehabilitation/swing bed when patient medically clear. Qualifiers: Encounter type: initial encounter Fracture type: closed Qualified Code(s) : S82.842A - Displaced bimalleolar fracture of left lower leg, initial encounter for closed fracture (5) Postural dizziness with presyncope Current Visit: Yes Status: Resolved - Subjective Interval history: Patient is doing much better now. Underwent laparoscopic cholecystectomy earlier this morning. Pain well controlled after procedure. Pain in left lower extremity is also well controlled and she is having more improved range of motion - Constitutional Vitals: Temp Pulse Resp BP Pulse Ox 98.4 F 83 16 120/60 95 12/31/16 13:40 12/31/16 13:40 12/31/16 13:40 12/31/16 13:40 12/31/16 13:40 General appearance: Present: cooperative, mild distress, A&O X 3, obese, answers questions appropriately - Cardiovascular Cardiovascular exam: Present: RRR, +S1, +S2. Absent: diastolic murmur, gallop, rubs, systolic murmur - GI/Abdominal GI/Abdominal exam: Present: normal bowel sounds, soft, tenderness (Soft, mild tenderness at surgical site), no peritoneal signs. Absent: distended - Extremities Exam Extremities exam: Present: warm, radial pulses palpable and symetrical. Absent : calf tenderness, cyanotic, pedal edema Additional comments: Left lower extremity in brace - Neurological Exam Neurological exam: Present: alert, oriented X3, no focal deficits. Absent: facial droop, speech deficit - Skin Skin exam: Present: dry, intact Internal Medicine: Result - Labs CBC & Chem 7: 12/31/16 04:43 12/31/16 04:43 Labs: Short CBC 12/31/16 Range/Units 04:43 WBC 7.5 (4.3-11.1) K/mcL Hgb 10.6 L (11.5-15.4) g/dL Hct 31.8 L (35.3-44.9) % Plt Count 112 L (140-400) K/mcL Neutrophils # 4.3 (1.6-8.9) K/mcL BMP 12/31/16 04:43 Sodium 142 Potassium 3.5 Chloride 111 H Carbon Dioxide 20 BUN 10 Creatinine 0.61 Glucose 89 Calcium 8.2 L Liver Function 12/31/16 Range/Units 04:43 Total Bilirubin 1.7 H (0.2-1.2) mg/dL Direct Bilirubin 0.5 (0.0-0.5) mg/dL AST 61 H (5-34) Units/L ALT 214 H (0-55) Units/L Alkaline Phosphatase 68 (38-126) Units/L Albumin 2.6 L (3.5-5.0) g/dL - ABG Interpretation ABG results: PT/INR, D-dimer PT 11.7 Seconds (9.4-12.1) 12/28/16 21:08 - VTE Documentation of Mechanical Device: Intermittent pneumatic compression device Consult Discharge Plan - Plan Referrals: Donnie Keith DO [Primary Care Provider] - - Attending Attestation This document has been at least partially created by [employer] recognition technology by Dr. Farfan. Errors in grammar, wording or other phrases may exist. If errors are found after the documentation is signed, they will be addressed individually in the addendum section of this document when appropriate.
[2016-12-31] MEDS: cefOXitin 2,000 MG in D5% in Water (Mini-Bag+) 100 ML IVPB SCH ×2 (16:36→23:47)
[2017-01-01 03:05] LABS: Basophils % 0.1 %; Hematocrit 32.7 % (35.3-44.9); Hemoglobin 10.6 g/dL (11.5-15.4); Immature Granulocytes % 0.5 % (0-4); Lymphocytes # 1.1 K/mcL (0.6-4.6); Lymphocytes % 13.9 %; Mean Corpuscular HGB Conc 32.4 g/dL (31.6-35.5); Mean Corpuscular Hemoglobin 29.9 pg (28.0-33.3); Mean Corpuscular Volume 92.1 fL (83.0-100.0); Mean Platelet Volume 13.5 fL (9.4-12.4); Monocytes # 0.9 K/mcL (0.0-1.3); Monocytes % 10.7 %; Neutrophils # 6.1 K/mcL (1.6-8.9); Platelet Count 121 K/mcL (140-400); Red Blood Count 3.55 M/mcL (3.82-4.97); Segmented Neutrophils % 74.8 %
[2017-01-01 03:24] LABS: Alanine Aminotransferase 189 Units/L (0-55); Albumin 2.6 g/dL (3.5-5.0); Albumin/Globulin Ratio 0.9 (1.1-2.2); Alkaline Phosphatase 75 Units/L (38-126); Aspartate Amino Transferase 62 Units/L (5-34); BUN/Creatinine Ratio 12 (6-26); Bilirubin,Direct 0.5 mg/dL (0.0-0.5); Bilirubin,Indirect 0.7 mg/dL (0.0-1.2); Bilirubin,Total 1.2 mg/dL (0.2-1.2); Blood Urea Nitrogen 9 mg/dL (7-20); Calcium 8.6 mg/dL (8.6-10.8); Carbon Dioxide 25 mEq/L (19-29); Chloride 107 mEq/L (98-109); Globulin 2.9 g/dL (2.4-3.5); Glucose 119 mg/dL (70-99); Magnesium 1.5 mg/dL (1.6-2.6); Osmolality,Calculated 292 (280-300); Potassium 3.5 mEq/L (3.5-4.5); Sodium 141 mEq/L (136-145); Total Protein 5.5 g/dL (6.0-8.3); eGFR For African Americans > 60 (> 60); eGFR For Non-African Americans > 60 (> 60)
[2017-01-01] MEDS: *HR* OxyCODONE/APAP 5/325 TABLET PO PRN ×3 (05:07→23:27)
[2017-01-01] MEDS: *HR* Heparin 5,000 UNIT/ML VIAL SQ SCH ×2 (06:08→18:27)
[2017-01-01] MEDS: Pantoprazole 40 MG VIAL IVP SCH ×2 (06:08→18:28)
[2017-01-01] MEDS: cefOXitin 2,000 MG in D5% in Water (Mini-Bag+) 100 ML IVPB SCH (08:57)
[2017-01-01] MEDS ORDERED: Magnesium Sulfate 2 GM in D5% in Water 100 ML IVPB ONE (10:26)
--- NOTE | 2017-01-01 11:49 | Internal Med Progress Note ---
Date of Encounter: 01/01/17 Time of Encounter: 10:50 - Assessment and plan (1) Pancreatitis, acute Current Visit: Yes Status: Acute Assessment and plan: Status post laparoscopic cholecystectomy. Surgery following. Tolerating clear liquid diet well. Continue supportive care. Low risk for complications at this time Qualifiers: Pancreatitis type: biliary Acute pancreatitis complication: no infection or necrosis Qualified Code(s): K85.10 - Biliary acute pancreatitis without necrosis or infection (2) Acute abdominal pain syndrome Current Visit: Yes Status: Acute (3) Fall at home Current Visit: Yes Status: Acute Qualifiers: Encounter type: initial encounter Qualified Code(s): W19.XXXA - Unspecified fall, initial encounter; Y92.099 - Unspecified place in other non- institutional residence as the place of occurrence of the external cause (4) Bimalleolar fracture of left ankle Current Visit: Yes Status: Acute Assessment and plan: Left lower extremity in brace. Nonsurgical management. Physical therapy. Patient may need placement to skilled rehabilitation. Qualifiers: Encounter type: initial encounter Fracture type: closed Qualified Code(s) : S82.842A - Displaced bimalleolar fracture of left lower leg, initial encounter for closed fracture (5) Postural dizziness with presyncope Current Visit: Yes Status: Resolved (6) Essential hypertension Current Visit: Yes Status: Chronic Assessment and plan: We will resume lisinopril but the patient takes at home. - Subjective Interval history: Patient is doing well. Tolerating clear liquid diet. Abdominal pain is well controlled. Left lower extremity pain is also well controlled and her range of motion is improving. Denies any other complaints at this time. - Constitutional Vitals: Temp Pulse Resp BP Pulse Ox 98.3 F 62 18 123/70 95 01/01/17 07:46 01/01/17 07:46 01/01/17 07:46 01/01/17 07:46 01/01/17 07:46 General appearance: Present: cooperative, mild distress, A&O X 3, obese, answers questions appropriately - Respiratory Respiratory exam: Present: CTAB. Absent: accessory muscle use, rales, rhonchi, wheezes - Cardiovascular Cardiovascular exam: Present: RRR, +S1, +S2. Absent: diastolic murmur, gallop, rubs, systolic murmur - GI/Abdominal GI/Abdominal exam: Present: distended, normal bowel sounds, soft, tenderness ( Mild right upper quadrant), no peritoneal signs - Skin Skin exam: Present: dry, intact Internal Medicine: Result - Labs CBC & Chem 7: 01/01/17 02:17 01/01/17 02:17 Labs: Short CBC 01/01/17 Range/Units 02:17 WBC 8.1 (4.3-11.1) K/mcL Hgb 10.6 L (11.5-15.4) g/dL Hct 32.7 L (35.3-44.9) % Plt Count 121 L (140-400) K/mcL Neutrophils # 6.1 (1.6-8.9) K/mcL BMP 01/01/17 02:17 Sodium 141 Potassium 3.5 Chloride 107 Carbon Dioxide 25 BUN 9 Creatinine 0.77 Glucose 119 H Calcium 8.6 Liver Function 01/01/17 Range/Units 02:17 Total Bilirubin 1.2 (0.2-1.2) mg/dL Direct Bilirubin 0.5 (0.0-0.5) mg/dL AST 62 H (5-34) Units/L ALT 189 H (0-55) Units/L Alkaline Phosphatase 75 (38-126) Units/L Albumin 2.6 L (3.5-5.0) g/dL - ABG Interpretation ABG results: PT/INR, D-dimer PT 11.7 Seconds (9.4-12.1) 12/28/16 21:08 - VTE Documentation of Mechanical Device: Intermittent pneumatic compression device Consult Discharge Plan - Plan Referrals: Donnie Keith DO [Primary Care Provider] - - Attending Attestation This document has been at least partially created by [employer] recognition technology by Dr. Farfan. Errors in grammar, wording or other phrases may exist. If errors are found after the documentation is signed, they will be addressed individually in the addendum section of this document when appropriate.
--- NOTE | 2017-01-01 14:35 | General Surgery Progress Note ---
Date of Encounter: 01/01/17 Time of Encounter: 13:55 - Assessment and Plan (1) Elevated LFTs Current Visit: Yes Status: Acute lfts somewhat trending down, will recheck in am (2) Gallstone pancreatitis Current Visit: Yes Status: Acute s/p lap cholecystectomy wiht inability to do cholangiograms mrcp before surgery showed to cbd stone or cbd dilation start regular diet jaxon drain teaching dc forde sliv prn pain meds bedside commode dc planning Subjective Patient reports: no new complaints, feels better, still having pain, pain is less, tolerating liquids well, flatus, afebrile Objective Vital Signs - Last 8 Hours Temp Pulse Resp BP Pulse Ox 01/01/17 07:46 98.3 F 62 18 123/70 95 Intake and Output 12/31/16 01/01/17 01/01/17 23:59 07:59 15:59 Intake Total 100 / 100 100 / 100 340 / 340 Output Total 950 / 950 565 / 565 Balance -850 / -850 -465 / -465 340 / 340 Intake: IV Fluids 100 / 100 100 / 100 100 / 100 Mefoxin 2,000 MG In 100 / 100 100 / 100 100 / 100 Dextrose 5% (Minibag+) 100 ML 100 ML @ 200 mls/ hr IVPB Q8HR [facility] Rx#: [id number] Oral 0 / 0 0 / 0 240 / 240 Output: Catheter 875 / 875 500 / 500 Wound Drainage 75 / 75 65 / 65 Right Abdomen 75 / 75 65 / 65 Other: Weight 81.5 kg Patient Weight 01/01/17 23:59 Weight 81.5 kg - General physical appearance well developed, well nourished, no distress - Eyes PERRL, normal ocular movement - ENT normal mucosa, normocephalic - Neck Neck exam: trachea midline - Respiratory normal expansion, clear to auscultation - Cardiovascular Cardiovascular exam: Present: RRR - Abdomen Abdomen: Present: bowel sounds present, soft, tender ( appropriate post op tenderness) - Incision Incision: Present: clean and dry, intact - Integumentary no rash, no growths - Neurologic CN 2-12 grossly intact - Musculoskeletal normal posture - Psychiatric oriented to time, memory intact - Additional Exam JAXON serous - Labs 01/01/17 02:17 01/01/17 02:17 Diabetes panel 01/01/17 Range/Units 02:17 Sodium 141 (136-145) mEq/L Potassium 3.5 (3.5-4.5) mEq/L Chloride 107 (98-109) mEq/L Carbon Dioxide 25 (19-29) mEq/L BUN 9 (7-20) mg/dL Creatinine 0.77 (0.57-1.11) mg/dL Glucose 119 H (70-99) mg/dL Calcium 8.6 (8.6-10.8) mg/dL AST 62 H (5-34) Units/L ALT 189 H (0-55) Units/L Alkaline Phosphatase 75 (38-126) Units/L Albumin 2.6 L (3.5-5.0) g/dL Calcium panel 01/01/17 Range/Units 02:17 Calcium 8.6 (8.6-10.8) mg/dL Albumin 2.6 L (3.5-5.0) g/dL Pituitary panel 01/01/17 Range/Units 02:17 Sodium 141 (136-145) mEq/L Potassium 3.5 (3.5-4.5) mEq/L Chloride 107 (98-109) mEq/L Carbon Dioxide 25 (19-29) mEq/L BUN 9 (7-20) mg/dL Creatinine 0.77 (0.57-1.11) mg/dL Glucose 119 H (70-99) mg/dL Calcium 8.6 (8.6-10.8) mg/dL Adrenal panel 01/01/17 Range/Units 02:17 Sodium 141 (136-145) mEq/L Potassium 3.5 (3.5-4.5) mEq/L Chloride 107 (98-109) mEq/L Carbon Dioxide 25 (19-29) mEq/L BUN 9 (7-20) mg/dL Creatinine 0.77 (0.57-1.11) mg/dL Glucose 119 H (70-99) mg/dL Calcium 8.6 (8.6-10.8) mg/dL Total Bilirubin 1.2 (0.2-1.2) mg/dL AST 62 H (5-34) Units/L ALT 189 H (0-55) Units/L Alkaline Phosphatase 75 (38-126) Units/L Albumin 2.6 L (3.5-5.0) g/dL - VTE Documentation of Mechanical Device: Intermittent pneumatic compression device Consult Discharge Plan - Plan Referrals: Donnie Keith DO [Primary Care Provider] -
[2017-01-02] MEDS: *HR* OxyCODONE/APAP 5/325 TABLET PO PRN ×2 (03:48→11:21)
[2017-01-02 04:52] LABS: Albumin 2.4 g/dL (3.5-5.0); Albumin/Globulin Ratio 0.8 (1.1-2.2); Bilirubin,Direct 0.4 mg/dL (0.0-0.5); Bilirubin,Indirect 0.5 mg/dL (0.0-1.2); Bilirubin,Total 0.9 mg/dL (0.2-1.2); Globulin 2.9 g/dL (2.4-3.5); Total Protein 5.3 g/dL (6.0-8.3)
[2017-01-02] MEDS: *HR* Heparin 5,000 UNIT/ML VIAL SQ SCH (06:36)
[2017-01-02] MEDS: Pantoprazole 40 MG VIAL IVP SCH (06:37)
--- NOTE | 2017-01-02 09:47 | Discharge Summary ---
Date of Encounter: 01/02/17 Time of Encounter: 09:00 - Discharge Diagnosis (1) Pancreatitis, acute Priority: Primary Status: Acute Qualifiers: Pancreatitis type: biliary Acute pancreatitis complication: no infection or necrosis Qualified Code(s): K85.10 - Biliary acute pancreatitis without necrosis or infection (2) Acute abdominal pain syndrome Priority: Secondary Status: Acute (3) Fall at home Priority: Secondary Status: Acute Qualifiers: Encounter type: initial encounter Qualified Code(s): W19.XXXA - Unspecified fall, initial encounter; Y92.099 - Unspecified place in other non- institutional residence as the place of occurrence of the external cause (4) Bimalleolar fracture of left ankle Priority: Secondary Status: Acute Qualifiers: Encounter type: initial encounter Fracture type: closed Qualified Code(s) : S82.842A - Displaced bimalleolar fracture of left lower leg, initial encounter for closed fracture (5) Postural dizziness with presyncope Priority: Secondary Status: Resolved (6) Essential hypertension Priority: Secondary Status: Chronic - Discharge Medications Prescriptions: Enoxaparin [Lovenox] 40 mg SQ DAILY #7 syr Ondansetron HCl [Zofran] 4 mg PO Q8H PRN #20 tablet PRN Reason: nausea Oxycodone HCl/Acetaminophen [Percocet 5-325 mg Tablet] 1 each PO Q6H PRN #14 tablet PRN Reason: moderate pain Home Medications: Acetaminophen [Tylenol] 325 mg PO Q6HR PRN 12/29/16 [History] Lisinopril [Zestril] 5 mg PO DAILY 12/29/16 [History] Enoxaparin [Lovenox] 40 mg SQ DAILY #7 syr 01/02/17 [Rx] Ondansetron HCl [Zofran] 4 mg PO Q8H PRN #20 tablet 01/02/17 [Rx] Oxycodone HCl/Acetaminophen [Percocet 5-325 mg Tablet] 1 each PO Q6H PRN #14 tablet 01/02/17 [Rx] Allergies/Adverse Reactions: Allergies No Known Allergies Allergy (Verified 12/29/16 09:53) Date of admission: 12/30/16 11:27 Primary care physician: Shena Wright Consults: 12/28/16 23:40 Consult to Surgery [CONS] Routine Consulting Provider: Silas Hernandez Reason for Consult: concern for gallstone pancreatitis Time Notified: 23:41 Call Completed: Yes 12/28/16 23:50 Consult to Orthopedic Surgery [CONS] Routine Consulting Provider: Carlos Dhaliwal Reason for Consult: L lateral and medial malleoli fxs Time Notified: 23:51 Call Completed: Yes 12/29/16 01:48 Consult to Java Security Architect [CONS] Routine Reason for SW Consult: Potential need for follow up with ECF or Outpatient therapy 12/29/16 08:11 Consult to Physical Therapy [CONS] Routine Comment: NONWEIGHT BEARING 12/29/16 08:14 Consult to Occupational Therapy [CONS] Routine Comment: Evaluate, develop and implement POC Discharging clinician: Jon Farfan Anticipated date of discharge: 01/02/17 - Patient Status Disposition: Transfer SNF Condition: Good Functional capacity at discharge: uses cane/walker Overall status at discharge: patient is progressing back to baseline - Discharge Instructions Instructions: Pancreatitis (DC), Fall Prevention (DC) Follow Up With: Donnie Keith DO [Primary Care Provider] - (In 1-2 weeks) Additional Instructions: With orthopedics in 1-2 weeks - Diet and Activity Activity: as per physical therapy Diet: low fat, low cholesterol, low salt diet Hospital course: Ms. Vora is a 66 year old female with a history of hypertension, anxiety was admitted here with acute pancreatitis. On presentation she had a lipase level of greater than 12,000. During her workup, she was found to have gallstones. Surgery was consulted for biliary pancreatitis. Patient underwent laparoscopic cholecystectomy on 12/31/2016. Postprocedure, she is doing well and is tolerating oral diet. Prior to presentation, she was also very dehydrated and fall at home resulting in bimalleolar left-sided ankle fracture. Orthopedics was consulted and they recommended conservative management and the patient has been receiving physical therapy and her left lower extremity is in a brace. She will continue physical therapy and will be discharged to skilled rehabilitation per physical therapy recommendations. She will also follow up with orthopedics in 1-2 weeks. She will be on DVT prophylaxis with Lovenox for 1 week. - Time Spent with Patient Total time spent providing and/or coordinating discharge services: Greater than 30 minutes (35 min) - Constitutional Vitals: Temp Pulse Resp BP Pulse Ox 98.1 F 65 16 118/69 96 01/02/17 07:25 01/02/17 07:25 01/02/17 07:25 01/02/17 07:25 01/02/17 07:25 General appearance: Present: cooperative, mild distress, A&O X 3, obese, answers questions appropriately - Respiratory Respiratory exam: Present: CTAB. Absent: accessory muscle use, rales, rhonchi, wheezes - Cardiovascular Cardiovascular exam: Present: RRR, +S1, +S2. Absent: diastolic murmur, gallop, rubs, systolic murmur - GI/Abdominal GI/Abdominal exam: Present: normal bowel sounds, soft, tenderness (Mild tenderness at surgical site), no peritoneal signs. Absent: distended - Extremities Exam Extremities exam: Present: warm, radial pulses palpable and symetrical. Absent : calf tenderness, cyanotic, pedal edema Additional comments: Left lower extremity in brace - Neurological Exam Neurological exam: Present: alert, oriented X3, no focal deficits. Absent: facial droop, speech deficit - VTE Documentation of Mechanical Device: Intermittent pneumatic compression device - Attending Attestation This document has been at least partially created by [employer] recognition technology by Dr. Farfan. Errors in grammar, wording or other phrases may exist. If errors are found after the documentation is signed, they will be addressed individually in the addendum section of this document when appropriate.
--- NOTE | 2017-01-02 09:57 | Physician Discharge Referral ---
<Jon Farfan - Last Filed: 01/02/17 09:57> [facility] Referral Info Provider in Charge after Transfer: PCP Institutional Level of Care: Skilled - Diagnosis (1) Pancreatitis, acute Priority: Primary Status: Acute (2) Acute abdominal pain syndrome Priority: Secondary Status: Acute (3) Fall at home Priority: Secondary Status: Acute (4) Bimalleolar fracture of left ankle Priority: Secondary Status: Acute (5) Postural dizziness with presyncope Priority: Secondary Status: Resolved (6) Essential hypertension Priority: Secondary Status: Chronic Prognosis: Good Aware of Diagnosis: Patient Aware of Prognosis: Patient - Transfer Medications Prescriptions: Enoxaparin [Lovenox] 40 mg SQ DAILY #7 syr Ondansetron HCl [Zofran] 4 mg PO Q8H PRN #20 tablet PRN Reason: nausea Oxycodone HCl/Acetaminophen [Percocet 5-325 mg Tablet] 1 each PO Q6H PRN #14 tablet PRN Reason: moderate pain Home Medications: Acetaminophen [Tylenol] 325 mg PO Q6HR PRN 12/29/16 [History] Lisinopril [Zestril] 5 mg PO DAILY 12/29/16 [History] Enoxaparin [Lovenox] 40 mg SQ DAILY #7 syr 01/02/17 [Rx] Ondansetron HCl [Zofran] 4 mg PO Q8H PRN #20 tablet 01/02/17 [Rx] Oxycodone HCl/Acetaminophen [Percocet 5-325 mg Tablet] 1 each PO Q6H PRN #14 tablet 01/02/17 [Rx] Allergies/Adverse Reactions: Allergies No Known Allergies Allergy (Verified 12/29/16 09:53) - Respiratory Orders Smoking Cessation: Smoking cessation has been advised. For more information, call the [place] Tobacco Quit Line at 6-133-LELK-NOW. - Ancillary Orders May consult with Dentist, Intelligence Consultant, Adult High School Instructor PRN - Advance Directives Code Status: Full Code - Mobility Orders Ambulate - Rehabiliation Orders Rehab Orders: Evaluation for Physical Therapy, Evaluation for Occupational Therapy - Diet Orders Cardiac CERTIFICATION: I certify that the transfer of the above named patient to an Extended Care Facility is necessary for the continuing treatment of the diagnosis listed. The above information is true and accurate reflection of patient's current condition. Confidential - Redisclosure prohibited without a patient's written consent. <Roslyn Mcfarland - Last Filed: 01/02/17 14:53> - Diagnosis (1) Gallstone pancreatitis Status: Acute (2) DVT prophylaxis Status: Acute - Respiratory Orders Smoking Cessation: Smoking cessation has been advised. For more information, call the [employer] Quit Line at 4-094-MCPI-NOW. - Lab Orders Lab Orders: Other (include drug levels w/frequency) (Hepatic panel to be complete on 01/15/17 and then fax results to Dr. Sheldon- [phone]) - Treatments List/Other: Surgical instructions: #1 may shower, no tub bath for 2 weeks #2 wash incisions with soap and water and pat dry daily #3 no lifting, pushing, pulling more than 15 pounds for the next 2 weeks #4 no driving until off narcotics for 24 hours and able to safely react in the car #5 may climb stairs #6 wash around drain with soap and water and pat dry daily, apply split 4X4 gauze and tape to secure daily. empty drain 2 times daily and as needed and record output (bring record to f/u appointment on 01/11/[address] Sheldon #7 Hepatic pane to be complete 01/15/17 CERTIFICATION: I certify that the transfer of the above named patient to an Extended Care Facility is necessary for the continuing treatment of the diagnosis listed. The above information is true and accurate reflection of patient's current condition. Confidential - Redisclosure prohibited without a patient's written consent.
--- NOTE | 2017-01-02 14:47 | General Surgery Progress Note ---
Date of Encounter: 01/02/17 Time of Encounter: 14:30 - Assessment and Plan (1) Gallstone pancreatitis Status: Acute POD # 2 laparoscopic cholecystectomy Regular diet Supportive care/pain control Repeat hepatic panel as outpatient in 4 days F/U office in 1 week. drain care (2) DVT prophylaxis Status: Acute Heparin 5,000 units SQ twice daily for DVT prophylaxis Subjective Patient reports: no new complaints, feels better, still having pain, pain is less, tolerating a regular diet, voiding w/o difficulty, flatus, no bowel movement, afebrile Objective Vital Signs - Last 8 Hours Temp Pulse Resp BP Pulse Ox 01/02/17 11:08 98.5 F 77 16 129/72 96 01/02/17 07:25 98.1 F 65 16 118/69 96 Intake and Output 01/01/17 01/02/17 01/02/17 23:59 07:59 15:59 Intake Total 100 / 100 1000 / 1000 560 / 560 Output Total 835 / 835 430 / 430 250 / 250 Balance -735 / -735 570 / 570 310 / 310 Intake: Oral 100 / 100 1000 / 1000 560 / 560 Output: Urine 200 / 200 400 / 400 250 / 250 Catheter 550 / 550 Wound Drainage 85 / 85 30 / 30 Right Abdomen 85 / 85 30 / 30 Other: Meal Breakfast Percent of Meal Consumed 5% Weight 81.5 kg Patient Weight 01/02/17 23:59 Weight 81.5 kg - General physical appearance well developed, well nourished, no distress - Eyes normal ocular movement - ENT normal mucosa, atraumatic, normocephalic - Neck Neck exam: trachea midline - Respiratory normal respiratory effort, clear to auscultation - Cardiovascular Cardiovascular exam: Present: RRR - Abdomen Abdomen: Present: bowel sounds present, tender (expected post-operative tenderness), wound (EDINSON drain to bulb suction with serous drainage noted) - Incision Incision: Present: clean and dry, intact - Integumentary no rash - Neurologic CN 2-12 grossly intact - Musculoskeletal normal posture - Psychiatric oriented to time, oriented to person, oriented to place, speech is normal, memory intact - Labs 01/01/17 02:17 01/01/17 02:17 Diabetes panel 01/02/17 Range/Units 04:19 AST 43 H (5-34) Units/L ALT 145 H (0-55) Units/L Alkaline Phosphatase 69 (38-126) Units/L Albumin 2.4 L (3.5-5.0) g/dL Calcium panel 01/02/17 Range/Units 04:19 Albumin 2.4 L (3.5-5.0) g/dL Adrenal panel 01/02/17 Range/Units 04:19 Total Bilirubin 0.9 (0.2-1.2) mg/dL AST 43 H (5-34) Units/L ALT 145 H (0-55) Units/L Alkaline Phosphatase 69 (38-126) Units/L Albumin 2.4 L (3.5-5.0) g/dL - VTE Documentation of Mechanical Device: Intermittent pneumatic compression device Consult Discharge Plan - Plan Instructions: Pancreatitis (DC), Fall Prevention (DC) Additional Instructions: With orthopedics in 1-2 weeks Surgical instructions: #1 may shower, no tub bath for 2 weeks #2 wash incisions with soap and water and pat dry daily #3 no lifting, pushing, pulling more than 15 pounds for the next 2 weeks #4 no driving until off narcotics for 24 hours and able to safely react in the car #5 may climb stairs #6 wash around drain with soap and water and pat dry daily, apply split 4X4 gauze and tape to secure daily. empty drain 2 times daily and as needed and record output (bring record to f/u appointment on 01/11/[address] Sheldon #7 Hepatic pane to be complete 01/15/17 Referrals: Donnie Keith DO [Primary Care Provider] - (In 1-2 weeks) Barbara Sheldon MD [Partnered Physician] - 01/11/17 11:05 am (Surgical follow- up) Prescriptions: Enoxaparin [Lovenox] 40 mg SQ DAILY #7 syr Ondansetron HCl [Zofran] 4 mg PO Q8H PRN #20 tablet PRN Reason: nausea Oxycodone HCl/Acetaminophen [Percocet 5-325 mg Tablet] 1 each PO Q6H PRN #14 tablet PRN Reason: moderate pain - Attending Attestation I examined this patient and my medical decision-making was reviewed with the CARD ASSEMBLER/PA/Advanced Practice Nurse/Resident Physician. I agree with the documented findings, disposition and treatment plan as described except to the extent set forth below. I examined this patient and my medical decision-making was reviewed with the CARD ASSEMBLER/PA/Advanced Practice Nurse/Resident Physician. I agree with the documented findings, disposition and treatment plan as described except to the extent set forth below.
[2017-01-02 14:58] VITALS: BP 118/95
== END 2017-01-02 17:44 | DRG 418 ==
LOC: 3NENU 19:40 → EMEROO 19:40 → 3NENU 12-29 01:13 → 3ANU 12-30 16:29
PROVIDERS: ADMIT Internal Medicine; ATTEND Internal Medicine